=== PATIENT | male | born 1940 | race Caucasian/White ===

== ENCOUNTER 2021-02-21 09:00 | Outpatient (RCR) | payer MEDICARE, BC, SELFPAY | END 2021-02-21 23:59 | disposition home or self-care (01) | LOC: CR 09:00 | PROVIDERS: PCP Family Medicine; Visit Provider Family Medicine | DX: I25.2 Old myocardial infarction (principal); Z51.89 Encounter for other specified aftercare; Z95.5 Presence of coronary angioplasty implant and graft; I49.3 Ventricular premature depolarization | CPT/HCPCS: S9472 ==

== ENCOUNTER 2021-03-21 09:00 | Outpatient (RCR) | payer MEDICARE, BC, SELFPAY | END 2021-03-24 23:59 | disposition home or self-care (01) | LOC: CR 09:00 | PROVIDERS: PCP Family Medicine; Visit Provider Family Medicine | DX: Z51.89 Encounter for other specified aftercare (principal); I25.2 Old myocardial infarction | CPT/HCPCS: S9472 ==

== ENCOUNTER 2021-04-23 09:00 | Outpatient (RCR) | payer MEDICARE, BC, SELFPAY | END 2021-04-23 23:59 | disposition home or self-care (01) | LOC: CR 09:00 | PROVIDERS: PCP Family Medicine; Visit Provider Family Medicine | DX: Z51.89 Encounter for other specified aftercare (principal); I25.2 Old myocardial infarction; Z95.5 Presence of coronary angioplasty implant and graft | CPT/HCPCS: S9472 ==

== ENCOUNTER 2021-05-05 09:00 | Outpatient (RCR) | payer MEDICARE, BC, SELFPAY | END 2021-05-24 23:59 | disposition home or self-care (01) | LOC: CR 09:00 | PROVIDERS: PCP Family Medicine; Visit Provider Family Medicine | DX: Z51.89 Encounter for other specified aftercare (principal); I25.2 Old myocardial infarction; Z95.5 Presence of coronary angioplasty implant and graft | CPT/HCPCS: S9472 ==

== ENCOUNTER 2023-10-22 11:05 | Outpatient (RCR) | payer SELFPAY ==
[2023-10-13 15:24] VITALS: BP 146/62; PULSE 94
[2023-10-22 12:35] VITALS: BP 120/66; PULSE 77
== END 2023-10-24 23:59 | disposition home or self-care (01) ==
LOC: CR 11:05
PROVIDERS: PCP Family Medicine; Visit Provider Family Medicine
DX: R69 Illness, unspecified (principal)

== ENCOUNTER 2023-10-27 11:31 | Outpatient (RCR) | payer SELFPAY ==
[2023-10-25 00:12] VITALS: BP 120/66; PULSE 77
[2023-10-27 11:53] VITALS: BP 117/62; PULSE 94
== END 2023-11-24 23:59 | disposition home or self-care (01) ==
LOC: CR 11:31
PROVIDERS: PCP Family Medicine; Visit Provider Internal Medicine Interventional Cardiology
DX: R69 Illness, unspecified (principal)

== ENCOUNTER 2024-03-13 21:51 | Observation (INO) | payer MEDICARE, BC, SELFPAY ==
[2024-03-13] VITALS (12 sets, daily range): BP systolic 91–144; BP diastolic 27–90; PULSE 60–85; RESP 16; TEMP 36.7; O2SAT 99
--- NOTE | 2024-03-13 21:45 | RT.EKG_ITS ---
APPROVED REPORT Exam: Resting ECG Reason for Exam: SOB Patient Location: E HR:62 bpm ECG Measurements Heart Rate 62 AXIS NJ 125 P 176 QRSd 159 QRS 130 QT 462 T [id number] QTc 471 Conclusion paced rhythm
--- NOTE | 2024-03-13 22:15 | DI.CT_ITS ---
Exam(s) CT BRAIN NECK CTA EXAM: CT BRAIN NECK CTA CLINICAL HISTORY: transient difficult speech L eye blurry vision. TECHNIQUE: Imaging Protocol: Axial CT angiography was performed with multi-slice acquisition and mu lti-planar and MIP reconstructions. CONTRAST MATERIAL: Intravenous: Omnipaque 350 Contrast volume:100 ml COMPARISON: No exams were available for comparison FINDINGS: CT Head W/O and W contrast: Ventricles and Extra axial spaces: Normal in size and morphology for the patient's age. Hemorrhage: None. Cerebral parenchyma: No evidence of acute infarct or mass. Mild atrophy. Moderate white matter augustin es of small vessel disease. Midline shift: None. Brainstem/Cerebellum: No acute findings.. Calvarium: Normal. Visualized Paranasal sinuses/Mastoids: Clear. Soft Tissues: Unremarkable. Enhancement: Normal. CTA Brain W: Internal Carotid Arteries: Petrous: Normal. Cavernous: Normal. Cerebral: Normal. Middle Cerebral Arteries: Right: No aneurysm, occlusion or significant stenosis. Left: No aneurysm, occlusion or significant stenosis. Anterior Cerebral Arteries: Right: Hypoplastic A1 segment, normal variant. No aneurysm. Left: No aneurysm, occlusion or significant stenosis. Posterior cerebral Arteries: Right: No aneurysm, occlusion or significant stenosis. Left: No aneurysm, occlusion or significant stenosis. Vertebral Arteries: Right: No aneurysm, occlusion or significant stenosis. Left: No aneurysm, occlusion or significant stenosis. Basilar Artery: No aneurysm, occlusion or significant stenosis. CTA Neck W: Common Carotid: Right: No dissection, occlusion or significant stenosis. Left: No dissection, occlusion or significant stenosis. External Carotid: Right: Moderate stenosis at origin. Left: No dissection, occlusion or significant stenosis. Internal Carotid: Right: Calcified plaque at origin causing moderate stenosis. No dissection. Left: Calcified plaque at origin causing moderate stenosis. No dissection. Vertebral Artery: Right: Calcific plaque at origin causing moderate stenosis. No dissection or occlusion. Left: No dissection, occlusion or significant stenosis. Lung Apices: Emphysematous and fibrotic changes. Bones: Degenerative changes in the cervical spine. No acute abnormality. Soft Tissues: Normal. IMPRESSION: 1. CTA brain: Normal CTA examination of the [place]. 2. Head CT: No acute abnormality. 3. CTA neck: Calcific plaque at the common carotid bulbs causing moderate stenosis of the internal ca rotid arteries. Moderate stenosis at the origin of the right vertebral artery. RADIATION DOSE DELIVERED: 2,187.9mGy.cm Total DLP DATA REPOSITORY: All CT scans at this facility are submitted to the National Radiology Data Registry (NRDR) Dose Index Registry (DIR) with the [employer] (ACR). RADIATION OPTIMIZATION: All CT scans at this facility use at least one of these dose optimization te chniques: automated exposure control; mA and/or kV adjustment per patient size (includes targeted exa ms where dose is matched to clinical indication); or iterative reconstruction.
--- NOTE | 2024-03-13 22:35 | ED.GENADUL_ITS ---
Discharge Plan Disposition Patient Disposition: Admit to [facility] Condition: Serious Discharge Details Chief Complaint: GenMedical Clinical Impression: Non-ST elevation CO (NSTEMI), Orthostatic hypotension, PATRICIA (acute kidney injury) Admit Date/Time: 03/14/24 03:17 Admit Provider: Neel Ochoa Attending Provider: Neel Ochoa Primary Care Provider: Ximena Packer ED Provider: Phyllis Matthews General Mode of arrival: ambulatory . Date/Time Provider Initiated Documentation: 03/13/24 21:59 . Limitations to Documentation: no limitations . Information obtained by: patient, family and old records reviewed . HPI Narrative: 83yo M with hx of interstitial lung disease, CAD s/p CO with stent placement and subsequently permanent pacemaker placement, presenting for episode of difficultly speaking, blurred vision, and hypotension. Has noted worsening dyspnea on exertion over the past week, mostly when walking the dog. Today around 7pm had difficulty speaking- knew what he wanted to say but was 'unable to get the words out'. No slurred speech. Not confused or disoriented. At the same time he noted blurry/grainy vision in his left eye; has occular migraines and had similar but not identical symptoms in the past, more typically 'bright' colors. Checked his blood pressure and it was 70's/40's; he reports he is usually mid-to-high 90's systolic with diastolic in the 40's. [place] a little lightheaded as well. This lasted for about 20 minutes before resolving ent irely. No chest pain, shortness of breath (aside from [place]), syncope, or falls at any point. Does have a mild left sided headache and lateral neck pain which has been intermittent for the past few weeks. Receives most of his care at [facility]; called triage nurse later in the evening and was instructed to present to the ED for evaluation. No fevers, chills, rash, numbness, tingling, weakness, vertigo, nasuea, vomiting, dysuria, hematuria, abdominal pain, dark stool, bloody stool, LE edema, or other concerns. Normal appetite and PO intake. Related Data Home Medications Medication Instructions Recorded Confirmed aspirin 81 mg capsule 81 mg PO DAILY 03/14/24 03/14/24 carvedilol 3.125 mg tablet (Coreg) 3.125 mg PO BID 03/14/24 03/14/24 ipratropium bromide 42 mcg (0.06 2 spray intranasal QID 03/14/24 03/14/24 %) nasal spray ketoconazole 2 % topical cream 1 applic topical DAILY PRN 03/14/24 03/14/24 lisinopril 5 mg tablet 5 mg PO DAILY 03/14/24 03/14/24 nitroglycerin 0.4 mg sublingual 0.4 mg sublingual Q5-15M PRN 03/14/24 03/14/24 tablet rosuvastatin 20 mg tablet (Crestor) 20 mg PO DAILY 03/14/24 03/14/24 spironolactone 25 mg tablet 25 mg PO DAILY 03/14/24 03/14/24 (Aldactone) Allergies Allergy/AdvReac Type Severity Reaction Status Date / Time No Known Allergies Allergy Verified 03/13/24 22:00 General Stated Complaint: GenMedical SHANNA: 3 Review of Systems Narrative: see HPI Exam Narrative Exam Narrative: General: Alert, well appearing, well nourished, in no acute distress. Appears younger than stated age. Head: Normocephalic, atraumatic. Mild left temporal tenderness to palaption. Neck: Trachea midline, ?Neck supple. Left trapezius and paraspinal muscle tenderness. No midline tenderness. No pain with flexion at neck. ENT: ?MMM.? No oropharygeal lesions or exudate. Cardiac: ?RRR, no murmurs appreciated Resp: No respiratory distress. CTAB. Abd: ?Soft, non-distended, nontender : ?No suprapubic tenderness. Extremities: ?No deformities.? No peripheral edema. Neuro: ? GCS 15.? PERRL.? EOMI.? Fluent speech, no dysarthria. Good muscle bulk. Motor- 5/5 strength symmetric bilateral upper and lower extremities including shoulder abductors/adductors, elbow flexors/extensors, wrist flexors/extensors, hipflexors/extensors, knee flexors/extensors, ankle dorsiflexors and planter flexors. Sensation- ?Intact to light touch and symmetric multiple dermatomes including upper and lower extremities Coordination- No dysmetria on finger to nose Gait/station: ?Normal stance.? No truncal ataxia. Steady gait with equal normal steps CRANIAL NERVES: II: Pupils equal and reactive, III, IV, : EOM intact, no gaze preference or deviation, no nystagmus. V: normal sensation in V1, V2, and V3 segments bilaterally VII: no asymmetry, no nasolabial fold flattening VIII: normal hearing to speech IX, X: normal palatal elevation, no uvular deviation XI: 5/5 head turn and 5/5 shoulder shrug bilaterally XII: midline tongue protrusion Course Vital Signs Vital signs: Vital Signs Temperature 36.7 C 03/13/24 21:55 Pulse 85 03/13/24 21:55 Respiratory Rate 16 03/13/24 21:55 Blood Pressure 91/43 L 03/13/24 21:55 Pulse Oximetry 99 03/13/24 21:55 Temperature 36.7 C 03/13/24 22:02 Temperature Source Temporal Artery Scan 03/13/24 22:02 Pulse 85 03/13/24 22:02 Respiratory Rate 16 03/13/24 22:11 Respiratory Effort Normal, Non-Labored 03/13/24 22:11 Respiratory Depth Normal 03/13/24 22:11 Respiratory Pattern Normal 03/13/24 22:11 Blood Pressure 91/43 L 03/13/24 22:02 Blood Pressure Position Sitting 03/13/24 22:02 Pulse Oximetry 99 03/13/24 22:02 Oxygen Delivery Method Room Air 03/13/24 22:02 Oxygen Flow Rate 0 03/13/24 21:55 Pain Level 0 03/13/24 22:02 Medical Decision Making 83yo M with hx of interstitial lung disease, CAD s/p CO with stent placement and subsequently permanent pacemaker placement, presenting for episode of difficultly speaking, blurred vision, and hypotension. This lasted for about 20 minutes before resolving entirely. Vital signs on arrival with BP 91/43 which patient reports is fairly typical for him (BP 102/43 at the time of my assessment), HR in 60's, afebrile. Normal neurologic exam. Very well appearing, clearly in excellent baseline health. VA 20/15 R, 20/20 L. EKG paced rhythm, no ST segment changes to suggest occlusive CO, no priors available for comparison. Given hx of CHF (though EF fairly good at 40-45%) will proceed cautiously with fluid resus, given 500cc IVFB. Broad differential including TIA, acute coronary syndromes, temporal giant cell arteritis, worsening heart failure, etc. Unlikely sepsis, would not treat empirically. Not concerning for meningitis or active stroke. Orthostatic vital signs ordered; SBP 144-124-101, however patient denies any symptoms with this. Labs reviewed as below. CBC with Hg of 11.9 (no reported history of bleeding, no indication for transfusion), CMP with Cr of 1.7 (able to review prior [facility] labs on patient's phone with his permission, he has a normal Cr at baseline), Mag normal, ESR & CRP normal (reassuring against TGCA), lactate normal. Initial trop 158, BNP not suggestive of acute CHF exacerbation. Given 325 of ASA. Dimer >1000; CT for PE ordered. CT head and neck independently reviewed, no bleed or mass on my view, agree with radiology read below. CT chest independently reviewed, no large saddle embolus on my view, agree with radiology read below. On reassessment patient continues to deny recurrent symptoms. Lungs remains clear, normal O2 sat on room air. Given 2nd 500cc IVFB. Discussed with [facility] cardiology Dr. Isaac, advised trending troponin, echocardiogram in the morning, no indication for acute intervention/heparin/transfer for cath. Repeat troponin flat/slightly downtrending. Discussed code status with patient; DNR/DNI. Discussed with [facility] hospitalist and accepted to medicine service for observation for further workup and management T2 NSTEMI, PATRICIA, orthostasis. Awaiting admission orders and transfer to the floor. Medical Records Medical records reviewed: Yes I reviewed the patient's medical records. Imaging Data Radiologic Study: Imaging: CT Scan Radiologist's impression: IMPRESSION: No hemodynamically significant stenosis IMPRESSION: Moderate stenosis in the carotid bulbs and right vertebral artery origin No large vessel occlusion Radiologic Study #2: Imaging: CT Scan Radiologist's impression: IMPRESSION: No pulmonary emboli detected Lab Data Lab results reviewed: Yes I reviewed the patient's lab results. Labs: Laboratory Tests Range/Units 03/13/24 03/13/24 03/14/24 22:45 23:53 02:30 WBC (4.4-10.8) 10^3/uL 8.18 RBC (4.36-5.78) 10^6/uL 3.92 L Hgb (13.5-17.5) g/dL 11.9 L Hct (40.0-50.0) % 36.8 L MCV (80-95) fL 94 MCH (27.0-33.0) pg 30.4 MCHC (32.0-36.0) % 32.3 RDW (11.8-14.1) % 13.1 Plt Count (130-400) 10^3/uL 197 MPV (8.0-11.0) fL 9.9 Immature Gran % % 0.4 Neutrophils % % 59.7 Lymphocytes % % 27.5 Monocytes % % 8.2 Eosinophils % % 3.7 Basophils % % 0.5 Nucleated RBC % (0.0-0.3) % 0.0 Absolute Neutrophils (1.2-6.7) 10^3/uL 4.89 Absolute Lymphocytes (1.2-3.4) 10^3/uL 2.25 Absolute Monocytes (0.1-0.8) 10^3/uL 0.67 Absolute Eosinophils (0.0-0.7) 10^3/uL 0.30 Absolute Basophils (0.0-0.2) 10^3/uL 0.04 ESR (0-20) mm/hr 8 D-Dimer (<500) ng/mlFEU 1119 H VBG Lactate (0.6-1.4) mmol/L 0.7 Sodium (136-145) mmol/L 140 138 Potassium (3.5-5.1) mmol/L 4.7 4.5 Chloride (98-107) mmol/L 107 106 Carbon Dioxide (21.0-32.0) mmol/L 26.2 26.8 Anion Gap (3-11) mmol/L 6.8 5.2 BUN (7-18) mg/dL 45 H 39 H Creatinine (0.70-1.30) mg/dL 1.7 H 1.3 Est GFR (CKD-EPI 2020) (mL/min/1.73m2) 39.26 54.17 Glucose (74-106) mg/dL 142 H 88 Calcium (8.5-10.1) mg/dL 8.3 L 7.9 L Magnesium (1.8-2.4) mg/dL 2.2 Total Bilirubin (0.2-1.0) mg/dL 0.3 AST (15-37) U/L 22 ALT (16-63) U/L 22 Alkaline Phosphatase (46-116) U/L 93 Troponin I (< or =60) ng/L 158 H* 150 H* C-Reactive Protein (<or=0.5) mg/dL < 0.50 NT-Pro-B Natriuret Pep (<300) pg/mL 327 H Total Protein (6.4-8.2) g/dL 6.7 Albumin (3.4-5.0) g/dL 3.4 Urine Color (Yellow) Yellow Urine Clarity (Clear) Clear Urine pH (5-8) 6.0 Ur Specific [place] (1.005-1.025) 1.010 Urine Protein (Neg-Trace) mg/dL Negative Urine Ketones (Negative) mg/dL Negative Urine Blood (Negative) Negative Urine Nitrite (Negative) Negative Urine Bilirubin (Negative) Negative Urine Urobilinogen (Up to 0.2) mg/dL 0.2 Ur Leukocyte Esterase (Negative) Trace H Urine RBC (0-2) HPF 0-2 Urine WBC (0-5) HPF 3-5 Ur Epithelial Cells (Negative) HPF Rare Urine Crystals (Negative) HPF Negative Urine Bacteria (Negative) HPF Rare Urine Mucus (Negative) Negative Ur Culture Indicated? No Urine Glucose (Negative) mg/dL Negative Quality:SDOH Health Related Social Needs: No Data to Display PFSH All Active Problems (Updated 03/14/24 @ 04:43 by Phyllis Matthews MD) PATRICIA (acute kidney injury) (Acute) Orthostatic hypotension (Acute) Non-ST elevation CO (NSTEMI) (Acute) COPD (chronic obstructive pulmonary disease) (Chronic) PATRICIA (acute kidney injury) (Acute) Hyperlipidemia (Acute) Heart block (Acute) CHF (congestive heart failure) (Chronic) CAD (coronary artery disease), [place] coronary artery (Acute) Elevated troponin level not due to acute coronary syndrome (Acute) Orthostasis (Acute) Social History Smoking/Tobacco Use Status: Former Tobacco Use Quit Date: 02/26/81 Smoking risk assessment performed?: Yes Alcohol Intake: former Drug use: Never Substance use type: does not use Housing: house Do you feel safe at home: Yes Do you feel safe in your relationship?: Yes
[2024-03-13] MEDS: Omnipaque 350 MG/ML 100 ML BTL IJ (22:48)
[2024-03-13] MEDS: Normal Saline Flush 10 ML SYR IVP (22:48)
[2024-03-13] MEDS: Normal Saline - Diluent 50 ML VIAL IJ (22:49)
[2024-03-13] MEDS: Normal Saline 500 ML 1000 ML IV (22:50)
[2024-03-13 22:51] LABS: Abs Immature Grans 0.03 10^3/uL (0.0-0.06); Absolute Basophil Count 0.04 10^3/uL (0.0-0.2); Absolute Lymphocyte Count 2.25 10^3/uL (1.2-3.4); Absolute Monocyte Count 0.67 10^3/uL (0.1-0.8); Absolute Neutrophil Count 4.89 10^3/uL (1.2-6.7); Basophils % 0.5 %; Eosinophils % 3.7 %; HCT 36.8 % (40.0-50.0); HGB 11.9 g/dL (13.5-17.5); Immature Grans % 0.4 %; Lymphocytes % 27.5 %; MCH 30.4 pg (27.0-33.0); MCHC 32.3 % (32.0-36.0); MCV 94 fL (80-95); MPV 9.9 fL (8.0-11.0); Monocytes % 8.2 %; Neutrophils % 59.7 %; Platelet Count 197 10^3/uL (130-400); RBC 3.92 10^6/uL (4.36-5.78); RDW 13.1 % (11.8-14.1); WBC 8.18 10^3/uL (4.4-10.8)
[2024-03-13 22:52] LABS: ESR 8 mm/hr (0-20); Lactate 0.7 mmol/L (0.6-1.4)
[2024-03-13 23:09] LABS: C-Reactive Protein < 0.50 mg/dL (<or=0.5)
[2024-03-13 23:13] LABS: Troponin I 158 ng/L (< or =60)
--- NOTE | 2024-03-13 23:15 | DI.CT_ITS ---
Exam(s) CT CHEST PE CTA EXAM: CT CHEST PE CTA CLINICAL HISTORY: shortness of breath, elevated dimer. TECHNIQUE: Imaging Protocol: Axial CT angiography was performed with multi-slice acquisition and mu lti-planar reconstructions as well as axial, coronal and sagittal MIP reconstructions. CONTRAST MATERIAL: Intravenous: Omnipaque 350 Contrast volume:65 ml COMPARISON: CT CT BRAIN NECK CTA from 03/13/2024 FINDINGS: Pulmonary Arteries: No evidence of filling defect to suggest pulmonary emboli. Tracheobronchial tree: No mucous plugging. Mediastinum and [place]: No dominant adenopathy or fluid collection. Pulmonary parenchyma: Emphysematous and fibrotic changes, greater at the upper lobes. No consolidati on or dominant measurable mass. Pleura: No effusion or pneumothorax. Heart: The heart is mildly dilated. coronary artery calcifications are seen. Aorta: Thoracic aorta non-dilated. No dissection. Upper abdomen: No acute findings. Bones: Flowing osteophytes. No compression fractures. Tubes, Catheters, and Lines: Pacemaker over left pectoral muscle. Soft tissues: Bilateral gynecomastia. IMPRESSION: No evidence of pulmonary embolism. Emphysematous and fibrotic changes. RADIATION DOSE DELIVERED: 371.82mGy.cm Total DLP DATA REPOSITORY: All CT scans at this facility are submitted to the National Radiology Data Registry (NRDR) Dose Index Registry (DIR) with the [employer] (ACR). RADIATION OPTIMIZATION: All CT scans at this facility use at least one of these dose optimization te chniques: automated exposure control; mA and/or kV adjustment per patient size (includes targeted exa ms where dose is matched to clinical indication); or iterative reconstruction.
[2024-03-13 23:17] LABS: ALT 22 U/L (16-63); AST 22 U/L (15-37); Albumin 3.4 g/dL (3.4-5.0); Alkaline Phosphatase 93 U/L (46-116); Anion Gap 6.8 mmol/L (3-11); BUN 45 mg/dL (7-18); Bilirubin, Total 0.3 mg/dL (0.2-1.0); CO2 26.2 mmol/L (21.0-32.0); CREATININE 1.7 mg/dL (0.70-1.30); Calcium 8.3 mg/dL (8.5-10.1); Chloride 107 mmol/L (98-107); Estimated GFR 39.26 (mL/min/1.73m2); Glucose 142 mg/dL (74-106); Magnesium 2.2 mg/dL (1.8-2.4); NT-proBNP 327 pg/mL (<300); Potassium 4.7 mmol/L (3.5-5.1); Sodium 140 mmol/L (136-145); Total Protein 6.7 g/dL (6.4-8.2)
[2024-03-13 23:23] LABS: D-Dimer 1119 ng/mlFEU (<500)
--- NOTE | 2024-03-13 23:57 | DI.VRAD_ITS ---
PROCEDURE INFORMATION: Exam: CTA Head With Contrast, Arteriography Exam date and time: 03/13/2024 11:04 PM Age: 83 years old Clinical indication: Speech disturbance and visual disturbance; Other visual defect; Prior surgery; Surgery date: 6+ months; Surgery type: Pacemaker; Patient HX: Transient difficult speech \T\ L eye blurry vision TECHNIQUE: Imaging protocol: Computed tomographic angiography of the head with contrast. Exam focused on the arteries. 3D rendering (Not supervised by radiologist): MIP and/or 3D reconstructed images were created by the technologist. Radiation optimization: All CT scans at this facility use at least one of these dose optimization techniques: automated exposure control; mA and/or kV adjustment per patient size (includes targeted exams where dose is matched to clinical indication); or iterative reconstruction. Contrast material: OMNIPAQUE 350; Contrast volume: 100 ml; Contrast route: INTRAVENOUS (IV); COMPARISON: No relevant prior studies available. FINDINGS: ANTERIOR CIRCULATION: Right internal carotid artery: Intracranial segment is patent with no significant stenosis. No aneurysm. Right middle cerebral artery: No occlusion or significant stenosis. No aneurysm. Right anterior cerebral artery: Hypoplasia of the A1 segment, a normal variation No occlusion or significant stenosis. No aneurysm. Left internal carotid artery: Intracranial segment is patent with no significant stenosis. No aneurysm. Left middle cerebral artery: No occlusion or significant stenosis. No aneurysm. Left anterior cerebral artery: No occlusion or significant stenosis. No aneurysm. POSTERIOR CIRCULATION: Right vertebral artery: No occlusion or significant stenosis. No aneurysm. Left vertebral artery: No occlusion or significant stenosis. No aneurysm. Basilar artery: No occlusion or significant stenosis. No aneurysm. Right posterior cerebral artery: No occlusion or significant stenosis. No aneurysm. Left posterior cerebral artery: No occlusion or significant stenosis. No aneurysm. Brain: No definite mass, mass effect, or midline shift. Moderate white matter disease Cerebral ventricles: No ventriculomegaly. Bones/joints: Unremarkable. No acute fracture. Soft tissues: Unremarkable. IMPRESSION: No hemodynamically significant stenosis PROCEDURE INFORMATION: Exam: CTA Neck With Contrast Exam date and time: 03/13/2024 11:04 PM Age: 83 years old Clinical indication: Speech disturbance and visual disturbance; Other visual defect; Prior surgery; Surgery date: 6+ months; Surgery type: Pacemaker; Patient HX: Transient difficult speech \T\ L eye blurry vision TECHNIQUE: Imaging protocol: Computed tomographic angiography of the neck with contrast. Exam focused on the cervical segments of the vasculature. 3D rendering (Not supervised by radiologist): MIP and/or 3D reconstructed images were created by the technologist. Radiation optimization: All CT scans at this facility use at least one of these dose optimization techniques: automated exposure control; mA and/or kV adjustment per patient size (includes targeted exams where dose is matched to clinical indication); or iterative reconstruction. Contrast material: OMNIPAQUE 350; Contrast volume: 100 ml; Contrast route: INTRAVENOUS (IV); COMPARISON: No relevant prior studies available. FINDINGS: Right common carotid artery: No stenosis. No dissection or occlusion. Right internal carotid artery: Calcified plaque with moderate stenosis at bulb. No dissection or occlusion. Right external carotid artery: No occlusion. Moderate stenosis of the origin. Left common carotid artery: No stenosis. No dissection or occlusion. Left internal carotid artery: Calcified plaque with moderate stenosis at the bulb. No dissection or occlusion. Left external carotid artery: No occlusion or stenosis of the origin. Right vertebral artery: Calcified plaque with moderate stenosis of the origin. No dissection or occlusion. Left vertebral artery: No stenosis. No dissection or occlusion. Soft tissues: No significant soft tissue swelling. Bones/joints: No acute fracture. IMPRESSION: Moderate stenosis in the carotid bulbs and right vertebral artery origin No large vessel occlusion REFERENCES: NASCET CRITERIA. The degree of stenosis in the cervical segment of the internal carotid artery is based on NASCET criteria. Normal is no stenosis. Mild is less than 50% stenosis. Moderate is 50-69% stenosis. Severe is 70% to 99% stenosis. Total occlusion is no detectable patent lumen. Dictated and Authenticated by: Romaine Dobson MD. Ordering:DYLON Ferguson MD
[2024-03-13 23:58] LABS: Bilirubin Negative (Negative); Blood Negative (Negative); Clarity Clear (Clear); Glucose Negative (Negative); Ketones Negative (Negative); Leukocyte Esterase Trace (Negative); Nitrite Negative (Negative); Urobilinogen 0.2 mg/dL (Up to 0.2)
[2024-03-14] VITALS (33 sets, daily range): BP systolic 80–175; BP diastolic 34–87; PULSE 59–142; RESP 11–30; TEMP 36.1–36.7; O2SAT 98–100
[2024-03-14 00:07] LABS: Bacteria Rare HPF (Negative); C & S Indicated? No; Crystals Negative HPF (Negative); Epithelial Cells Rare HPF (Negative); Mucus Negative (Negative); RBC 0-2 HPF (0-2)
[2024-03-14] MEDS: Omnipaque 350 MG/ML 100 ML BTL IJ (00:18)
[2024-03-14] MEDS: Normal Saline - Diluent 50 ML VIAL IJ (00:19)
--- NOTE | 2024-03-14 00:39 | DI.VRAD_ITS ---
PROCEDURE INFORMATION: Exam: CTA Chest With Contrast Exam date and time: 03/13/2024 11:47 PM Age: 83 years old Clinical indication: Abnormal findings; Abnormal diagnostic tests; Elevated d-dimer; Prior surgery; Surgery date: 6+ months; Surgery type: Pacemaker/stent; Patient HX: Shortness of breath, elevated dimer TECHNIQUE: Imaging protocol: Computed tomographic angiography of the chest with contrast. Exam focused on the arteries. 3D rendering (Not supervised by radiologist): MIP and/or 3D reconstructed images were created by the technologist. Radiation optimization: All CT scans at this facility use at least one of these dose optimization techniques: automated exposure control; mA and/or kV adjustment per patient size (includes targeted exams where dose is matched to clinical indication); or iterative reconstruction. Contrast material: OMNIPAQUE 350; Contrast volume: 65 ml; Contrast route: INTRAVENOUS (IV); COMPARISON: CT BRAIN NECK CTA 03/13/2024 11:04 PM FINDINGS: Pulmonary arteries: No pulmonary emboli. Aorta: No aortic aneurysm. No aortic dissection. Lungs: No consolidation. No masses. Emphysema and minimal subsegmental atelectasis versus scarring Pleural spaces: Unremarkable. No pneumothorax. No pleural effusion. Heart: Cardiac pacemaker leads noted Mild cardiomegaly. Coronary calcifications No pericardial effusion. Lymph nodes: Unremarkable. No enlarged lymph nodes. Bones/joints: Unremarkable. No acute fracture. Soft tissues: Unremarkable. Hepatic cyst in the right lobe IMPRESSION: No pulmonary emboli detected Dictated and Authenticated by: Romaine Dobson MD. Ordering:DYLON Ferguson MD
[2024-03-14] MEDS: Normal Saline 500 ML 1000 ML IV (01:00)
[2024-03-14 02:47] LABS: Anion Gap 5.2 mmol/L (3-11); BUN 39 mg/dL (7-18); CO2 26.8 mmol/L (21.0-32.0); CREATININE 1.3 mg/dL (0.70-1.30); Calcium 7.9 mg/dL (8.5-10.1); Chloride 106 mmol/L (98-107); Estimated GFR 54.17 (mL/min/1.73m2); Glucose 88 mg/dL (74-106); Potassium 4.5 mmol/L (3.5-5.1); Sodium 138 mmol/L (136-145)
[2024-03-14 03:02] LABS: Troponin I 150 ng/L (< or =60)
--- NOTE | 2024-03-14 03:06 | W.PM.HP.N ---
Date of service: 03/14/24 Time of Service: 03:06 Assessment and Plan Assessment and plan (1) Orthostasis: Start date: 03/14/24 Status: Acute Assessment and plan: This is an 83-year-old gentleman with orthostatic symptoms and low blood pressure. He is a cardiac pacemaker his heart rate was not dropping below 60 with pacing evident on rapid transit operator. He was driving on the day of presentation and did feel better after fluid resuscitation. He had decreased intake the day of presentation. He will maintain hydration orally and hold lisinopril for now with Coreg and spironolactone will be continued with a history of CHF. Follow-up echocardiogram to update and trend troponins. He is not having any ischemic changes with less than branch block and pacing and is chest pain-free. Troponins were slightly elevated this appears to be not from ischemic event. He is a DNR/DNI. (2) PATRICIA (acute kidney injury): Start date: 03/14/24 Status: Acute Assessment and plan: Fluid hydration has already done with no further hydration and patient to take an oral fluids and food. This has been decreased over the last couple days. He is on spironolactone. He appears to be at his baseline. (3) Elevated troponin level not due to acute coronary syndrome: Start date: 03/14/24 Status: Acute Assessment and plan: Trending appears to be decreasing with continued trending follow-up cardiac monitoring as well as echocardiogram. (4) CAD (coronary artery disease), [place] coronary artery: Status: Chronic Assessment and plan: Previous history of events with pacemaker. Continue cardiac monitoring and troponin trending which appears to be decreasing. Patient will be follow-up with [facility] [place]. Qualifiers: Associated angina: without angina Teller vs. transplanted heart: [place] heart Qualified Code(s): I25.10 - Atherosclerotic heart disease of [place] coronary artery without angina pectoris (5) CHF (congestive heart failure): Status: Chronic Assessment and plan: Update echocardiogram and continue outpatient medical therapy except for lisinopril for now. Patient will follow-up with [facility] cardiology and they will be reconsulted if patient becomes unstable. He is a DNR/DNI. Qualifiers: Heart failure chronicity: chronic Heart failure type: systolic Qualified Code(s): I50.22 - Chronic systolic (congestive) heart failure (6) Heart block: Status: Chronic Assessment and plan: With permanent pacemaker functioning well. There is good capture. Patient is not restricted in his activity. (7) Hyperlipidemia: Status: Chronic Assessment and plan: Continue statin therapy. Qualifiers: Hyperlipidemia type: mixed hyperlipidemia Qualified Code(s): E78.2 - Mixed hyperlipidemia (8) COPD (chronic obstructive pulmonary disease): Status: Chronic Assessment and plan: Continue outpatient inhaler. Qualifiers: COPD type: emphysema Emphysema type: other Qualified Code(s): J43.8 - Other emphysema (9) Carotid stenosis, bilateral: Status: Chronic Assessment and plan: Moderate and possibly symptomatic the patient is having dizziness but this appears to be more associated with orthostasis. Follow-up as outpatient on this issue with his PCP and cardiology and possibly cardiovascular surgery at [facility]. He is on aspirin. There is no evidence of stroke. With no focal neurological symptoms MRI of the brain will be deferred History of Present Illness History of Present Illness Chief Complaint: Episode of difficulty speaking with blurred vision and low blood pressure Narrative: This is an 83-year-old male patient reported to the ED because of an episode of dizziness with blurred vision and difficulty speaking even though he was thinking clearly knowing what he wanted to say. He measured his blood pressure at home because of his symptoms and had a systolic blood pressure below 80. He has been having worsening dyspnea with exertion walking his dog recently having a known decrease left-ventricular ejection fraction to 40 to 45% status post CAD with MD and subsequent pacemaker. He also has interstitial lung disease. He has been remaining very active physically after these events. The present episode happened in the early evening the day prior to admission where he had difficulty speaking when he knew what he wanted to say but was unable to get his words out. He had no slurred speech. He did not feel confused. 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 With his dizziness he felt lightheaded during the episode. 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 In the ED he was found to have orthostatic blood pressure measurements though he was not symptomatic during these measurements and his EKG showed no acute ischemic changes though he had slightly elevated troponins which were plateauing just above 300. Imaging did not reveal a PE or any positive findings for stroke. He did have mild PATRICIA which corrected with IV fluids. He did that he was not eating or drinking well the day prior to admission. He did call cardiology at [facility] and gave his vital signs and symptoms to advise him to be evaluated in the ER. The ED provider did review the case with [facility] cardiology who advised observation with trending troponins and cardiac monitoring with updated echocardiogram follow-up in the morning. His last echocardiogram was in 2022. The patient was asymptomatic at the time I saw him and agreed with the care plan. He is a DNR/DNI. Review of Systems Narrative: 13 point review of systems negative for any peripheral edema or increased weight, otherwise as per HPI, unrevealing or stable. PFSH All Active Problems (Updated 03/14/24 @ 10:55 by Neel Ochoa) Carotid stenosis, bilateral (Chronic) PATRICIA (acute kidney injury) (Acute) Orthostatic hypotension (Acute) Non-ST elevation MD (NSTEMI) (Acute) COPD (chronic obstructive pulmonary disease) (Chronic) PATRICIA (acute kidney injury) (Acute) Hyperlipidemia (Chronic) Heart block (Chronic) CHF (congestive heart failure) (Chronic) CAD (coronary artery disease), [place] coronary artery (Chronic) Elevated troponin level not due to acute coronary syndrome (Acute) Orthostasis (Acute) Social History Smoking/Tobacco Use Status: Former Tobacco Use Quit Date: 02/26/81 Smoking risk assessment performed?: Yes Alcohol Intake: former Drug use: Never Substance use type: does not use Housing: house Do you feel safe at home: Yes Do you feel safe in your relationship?: Yes Meds Allergies and Home Medications Allergies Allergy/AdvReac Type Severity Reaction Status Date / Time No Known Allergies Allergy Verified 03/13/24 22:00 Home Medications Medication Instructions Recorded Confirmed Type aspirin 81 mg capsule 81 mg PO DAILY 03/14/24 03/14/24 History carvedilol 3.125 mg tablet (Coreg) 3.125 mg PO BID 03/14/24 03/14/24 History ipratropium bromide 42 mcg (0.06 2 spray intranasal QID 03/14/24 03/14/24 History %) nasal spray ketoconazole 2 % topical cream 1 applic topical DAILY PRN 03/14/24 03/14/24 History lisinopril 5 mg tablet 5 mg PO DAILY 03/14/24 03/14/24 History nitroglycerin 0.4 mg sublingual 0.4 mg sublingual Q5-15M PRN 03/14/24 03/14/24 History tablet rosuvastatin 20 mg tablet (Crestor) 20 mg PO DAILY 03/14/24 03/14/24 History spironolactone 25 mg tablet 25 mg PO DAILY 03/14/24 03/14/24 History (Aldactone) Exam Narrative Exam Narrative: General: Patient appears appropriate for age is not younger, alert and oriented x 3 and in no acute distress. HEENT: Normocephalic, eyes with pupils equal and react to light symmetrically, extraocular movement tachycardia sclera anicteric. Oral mucosa slightly dry with good dentition. Neck: Supple without JVD. Back: Normal posture without CVA tenderness. Lungs: Fair aeration and clear to auscultation percussion. No focalizing rales or rhonchi. Heart: Regular rate and rhythm with no murmur or gallop appreciated. field technician shows paced rhythm. Abdomen: Normal contour, soft to palpation with no guarding or rebound. No palpable hepatosplenomegaly. Bowel sounds positive all quadrants. Genitalia/rectal: Exam deferred. Extremities: No clubbing, cyanosis or pitting edema. Peripheral pulses intact with good capillary refill. Skin: Normal color, warm and dry. Neuro: Cranial nerves II through XII gross intact, no focalizing motor deficits. No tremor. Psych: Normal affect and mood. No abnormal thought processes. Remote and recent memory intact. Results Imaging Imaging Studies: EXAM: CT CHEST PE CTA CLINICAL HISTORY: shortness of breath, elevated dimer. TECHNIQUE: Imaging Protocol: Axial CT angiography was performed with multi-slice acquisition and multi-planar reconstructions as well as axial, coronal and sagittal MIP reconstructions. CONTRAST MATERIAL: Intravenous: Omnipaque 350 Contrast volume:65 ml COMPARISON: CT CT BRAIN NECK CTA from 03/13/2024 FINDINGS: Pulmonary Arteries: No evidence of filling defect to suggest pulmonary emboli. Tracheobronchial tree: No mucous plugging. Mediastinum and [place]: No dominant adenopathy or fluid collection. Pulmonary parenchyma: Emphysematous and fibrotic changes, greater at the upper lobes. No consolidation or dominant measurable mass. Pleura: No effusion or pneumothorax. Heart: The heart is mildly dilated. coronary artery calcifications are seen. Aorta: Thoracic aorta non-dilated. No dissection. Upper abdomen: No acute findings. Bones: Flowing osteophytes. No compression fractures. Tubes, Catheters, and Lines: Pacemaker over left pectoral muscle. Soft tissues: Bilateral gynecomastia. IMPRESSION: No evidence of pulmonary embolism. Emphysematous and fibrotic changes. EXAM: CT BRAIN NECK CTA CLINICAL HISTORY: transient difficult speech L eye blurry vision. TECHNIQUE: Imaging Protocol: Axial CT angiography was performed with multi-slice acquisition and multi-planar and MIP reconstructions. CONTRAST MATERIAL: Intravenous: Omnipaque 350 Contrast volume:100 ml COMPARISON: No exams were available for comparison FINDINGS: CT Head W/O and W contrast: Ventricles and Extra axial spaces: Normal in size and morphology for the patient's age. Hemorrhage: None. Cerebral parenchyma: No evidence of acute infarct or mass. Mild atrophy. Moderate white matter changes of small vessel disease. Midline shift: None. Brainstem/Cerebellum: No acute findings.. Calvarium: Normal. Visualized Paranasal sinuses/Mastoids: Clear. Soft Tissues: Unremarkable. Enhancement: Normal. CTA Brain W: Internal Carotid Arteries: Petrous: Normal. Cavernous: Normal. Cerebral: Normal. Middle Cerebral Arteries: Right: No aneurysm, occlusion or significant stenosis. Left: No aneurysm, occlusion or significant stenosis. Anterior Cerebral Arteries: Right: Hypoplastic A1 segment, normal variant. No aneurysm. Left: No aneurysm, occlusion or significant stenosis. Posterior cerebral Arteries: Right: No aneurysm, occlusion or significant stenosis. Left: No aneurysm, occlusion or significant stenosis. Vertebral Arteries: Right: No aneurysm, occlusion or significant stenosis. Left: No aneurysm, occlusion or significant stenosis. Basilar Artery: No aneurysm, occlusion or significant stenosis. CTA Neck W: Common Carotid: Right: No dissection, occlusion or significant stenosis. Left: No dissection, occlusion or significant stenosis. External Carotid: Right: Moderate stenosis at origin. Left: No dissection, occlusion or significant stenosis. Internal Carotid: Right: Calcified plaque at origin causing moderate stenosis. No dissection. Left: Calcified plaque at origin causing moderate stenosis. No dissection. Vertebral Artery: Right: Calcific plaque at origin causing moderate stenosis. No dissection or occlusion. Left: No dissection, occlusion or significant stenosis. Lung Apices: Emphysematous and fibrotic changes. Bones: Degenerative changes in the cervical spine. No acute abnormality. Soft Tissues: Normal. IMPRESSION: 1. CTA brain: Normal CTA examination of the [place]. 2. Head CT: No acute abnormality. 3. CTA neck: Calcific plaque at the common carotid bulbs causing moderate stenosis of the internal carotid arteries. Moderate stenosis at the origin of the right vertebral artery. Labs 03/14/24 06:07 03/14/24 06:07 Labs: Laboratory Results - last 24 hr 03/13/24 03/13/24 03/14/24 22:45 23:53 02:30 WBC 8.18 RBC 3.92 L Hgb 11.9 L Hct 36.8 L MCV 94 MCH 30.4 MCHC 32.3 RDW 13.1 Plt Count 197 MPV 9.9 Immature Gran % 0.4 Neutrophils % 59.7 Lymphocytes % 27.5 Monocytes % 8.2 Eosinophils % 3.7 Basophils % 0.5 Nucleated RBC % 0.0 Absolute Neutrophils 4.89 Absolute Lymphocytes 2.25 Absolute Monocytes 0.67 Absolute Eosinophils 0.30 Absolute Basophils 0.04 ESR 8 D-Dimer 1119 H VBG Lactate 0.7 Sodium 140 138 Potassium 4.7 4.5 Chloride 107 106 Carbon Dioxide 26.2 26.8 Anion Gap 6.8 5.2 BUN 45 H 39 H Creatinine 1.7 H 1.3 Est GFR (CKD-EPI 2020) 39.26 54.17 Glucose 142 H 88 Calcium 8.3 L 7.9 L Magnesium 2.2 Total Bilirubin 0.3 AST 22 ALT 22 Alkaline Phosphatase 93 Troponin I 158 H* 150 H* C-Reactive Protein < 0.50 NT-Pro-B Natriuret Pep 327 H Total Protein 6.7 Albumin 3.4 Urine Color Yellow Urine Clarity Clear Urine pH 6.0 Ur Specific [place] 1.010 Urine Protein Negative Urine Ketones Negative Urine Blood Negative Urine Nitrite Negative Urine Bilirubin Negative Urine Urobilinogen 0.2 Ur Leukocyte Esterase Trace H Urine RBC 0-2 Urine WBC 3-5 Ur Epithelial Cells Rare Urine Crystals Negative Urine Bacteria Rare Urine Mucus Negative Ur Culture Indicated? No Urine Glucose Negative Last Vital Signs Temp 36.7 C 03/13/24 22:02 Pulse 68 03/13/24 23:41 Resp 16 03/13/24 22:11 BP 144/47 H 03/13/24 23:41 Pulse Ox 99 03/13/24 22:02 Time Spent Time spent with Patient: >75 minutes Time was spent: preparing to see the patient(eg.review tests), obtaining and/or reviewing separately otained hiistory, ordering medications,tests, procedures, referring, communicating with other health doggy daycare activities director, indepentently interpreting results, counseling the patient and care coordination
[2024-03-14] MEDS: Aspirin 81 MG CHEW 324 MG CH (03:07)
[2024-03-14 06:30] LABS: HCT 37.3 % (40.0-50.0); HGB 12.3 g/dL (13.5-17.5); MCH 30.7 pg (27.0-33.0); MCV 93 fL (80-95); MPV 10.1 fL (8.0-11.0); Platelet Count 184 10^3/uL (130-400); RBC 4.01 10^6/uL (4.36-5.78); RDW 13.2 % (11.8-14.1); RDW-SD 45.3 fL; WBC 6.79 10^3/uL (4.4-10.8)
[2024-03-14 06:59] LABS: ALT 20 U/L (16-63); AST 22 U/L (15-37); Albumin 3.3 g/dL (3.4-5.0); Alkaline Phosphatase 91 U/L (46-116); BUN 37 mg/dL (7-18); Bilirubin, Total 0.3 mg/dL (0.2-1.0); CREATININE 1.2 mg/dL (0.70-1.30); Calcium 8.4 mg/dL (8.5-10.1); Chloride 109 mmol/L (98-107); Estimated GFR 59.63 (mL/min/1.73m2); Glucose 113 mg/dL (74-106); Magnesium 2.2 mg/dL (1.8-2.4); Potassium 4.1 mmol/L (3.5-5.1); Sodium 140 mmol/L (136-145); TSH (W/Ref FT4) 2.86 uIU/mL (0.36-3.74); Total Protein 6.6 g/dL (6.4-8.2)
[2024-03-14 07:03] LABS: Troponin I 146 ng/L (< or =60)
[2024-03-14] MEDS: Enoxaparin 40 MG/0.4 ML SYR SC ×2 (08:16→19:38)
[2024-03-14] MEDS: Aspirin 81 MG CHEW PO (08:17)
[2024-03-14] MEDS: Normal Saline Flush 10 ML SYR IVP ×3 (08:18→23:45)
[2024-03-14] MEDS: Spironolactone 25 MG TAB PO (08:18)
[2024-03-14 09:59] LABS: Troponin I 153 ng/L (< or =60)
--- NOTE | 2024-03-14 13:27 | DI.US_ITS ---
APPROVED REPORT EXAM: Comprehensive 2D, Doppler, and color-flow Echocardiogram Patient Location: Out-Patient Crm System Administrator: Caroline Lackey RDCS (AE) Indications: CHF with elevated troponins, PATRICIA, orthostasis, CAD Other Information Study Quality: Adequate Conclusion Normal left ventricular wall thickness and chamber size. Ejection fraction is 50 to 55%. There are no segmental wall motion abnormalities Normal right ventricular size and function Both atria are normal in size Device lead noted in the right heart Aortic valve is trileaflet and mildly sclerotic without stenosis or regurgitation Mild mitral annular calcification. Mild mitral regurgitation Estimated right ventricular systolic pressure is 25 mmHg Compared to an echocardiogram from November 2023 at [facility], LV function appears mildly improved Wall motion Left Ventricle The left ventricle is normal size. The overall left ventricular systolic function appears normal. The re is normal left ventricular wall thickness. There is normal LV segmental wall motion. There is no v entricular septal defect visualized. LVEF is 53%. Right Ventricle The right ventricle is normal size. The right ventricular systolic function is normal. Pacemaker adam d is present in the right ventricle. Atria The left atrium size is normal. The right atrium size is normal. The interatrial septum is intact wit h no evidence for an atrial septal defect. Aortic Valve The Aortic valve is mildly sclerotic. Aortic valve is trileaflet. There is no aortic valvular stenosi s. No aortic regurgitation is present. Mitral Valve Mild mitral annular calcification. No evidence of mitral valve stenosis. Mild mitral regurgitation. Tricuspid Valve The tricuspid valve is normal in structure. There is no tricuspid valve stenosis. Trace tricuspid reg urgitation. The RVSP is 25.0 mmHg. Pulmonic Valve The pulmonary valve is normal in structure. There is no pulmonic valvular stenosis. Trace pulmonic re gurgitation. Great Vessels The aortic root is normal in size. The ascending aorta is normal in size. Aortic arch is not well vis ualized. IVC is normal in size and collapses >50% with inspiration. Pericardium There is no pericardial effusion. 2D Dimensions IVSD d PLAX 1.11 cm M: 0.6-1.2 Ao Root d 3.25 cm M: 3.1 - 3.7 LVPW d PLAX 1.10 cm M: 0.6 - 1.2 Ao Asc Diam d 3.24 cm M: 2.6 - 3.4 LVID d PLAX 4.99 cm M: 4.2 - 5.8 LVDs 3.66 cm M: 2.5 - 4.0 LV EF Teichholz 51.8 % FS 26.60 % LV EDV (Teich) 117.5 mL LV ESV (Teich) 56.6 mL M-Mode TAPSE 2.13 cm (M/F) >1.7 Auto EF LV EDV A4C 92.8 mL LV EDV A2C 127.4 mL LV EDV BP 109.9 mL LV ESV A4C 46.3 mL LV ESV A2C 59.4 mL LV ESV BP 51.5 mL LVEF(%) A4C 50.1 % LVEF(%) A2C 53.4 % LVEF(%) BP 53.1 % LV SV A4C 46.5 ml LV SV A2C 68.0 ml LV SV BP 58.4 ml LV CO A4C 2.8 L/min LV CO A2C 4.1 L/min LV CO BP 3.4 L/min HR A4C 59.90 BPM HR A2C 59.90 BPM LV EDV Index (BP) LV Strain Long Pk Overal Avg (s) 11.68 LA Volume LA Length A4C 5.8 cm LA Length A2C 5.7 cm LA Area A4C s 17.76 cm2 LA Area A2C s 18.38 cm2 LA Vol A4C A-L 46.14 mL LA Vol A2C A-L 49.98 mL LA Vol Biplane A-L 48.3 mL LA Vol/BSA A4C A-L LA Vol/BSA A2C A-L LA Vol/BSA BP A-L 25.8 mL/m2 LA Vol A4C MOD 43.7 mL LA Vol A2C MOD 47.9 mL LA Vol BP MOD 45.7 mL RA Volume RA Area A4C 15.4 cm2 RA ESV A4C (A-L) 40.6mL RA Vol/BSA A4C A-L RA Length A4C 4.9 cm RA ESV A4C (MOD) 38.4mL LV Diastology MV E' medial 0.087 (>0.07 m/s) MV E Vmax 0.90 (0.4-1.3 m/s) MV E/E' MED 10.36 (<14) MV A Vmax 0.90 (0.4-1.3 m/s) MV E' lateral 0.077 (>0.1 m/s) E/A Ratio 1.0 MV E/E' LAT 11.68 (<14) MV E' Average 0.082 m/s MV E/E'(average) 10.98 Aortic Valve AoV Vmax 1.93 m/s LVOT Vmax 1.28 m/s AoV Peak Grad 14.9 mmHg LVOT Peak Grad 6.5 mmHg AoV Area (Vmax) 2.12 cm2 LVOT VTI 0.276 m AoV VTI 0.457 m LVOT Mean Grad 3.8 mmHg AoV Mean [place]. 1.31 m/s LVOT SV 88.74 mL AoV Mean Grad 7.9 mmHg LVOT Diam s 2.00 cm AoV Area (VTI) 1.94 cm2 Velocity Ratio 0.66 Mitral Valve MV DT 200 (160-240 msec) MV Vmax TIPS 0.81 m/s MV Mean Grad 1.4 (<2mmHg) MV VTI 0.274 m Pulmonary Valve PV Vmax 0.93 (0.5-1.5 m/s) RVOT Vmax 0.69 m/s PV Peak Grad 3.5 mmHg RVOT Peak Gr. 1.9 mmHg PV Mean [place] 0.67 m/s RVOT VTI 0.142 m PV Mean Grad 2.1 mmHg RVOT Mean Gr. 1.0 mmHg Tricuspid Valve RA Pressure 3.00 mmHg TR Vmax 2.34 m/s TV S' 0.14 m/s TR Peak Grad 21.9 mmHg RVSP (TR) 25.0 mmHg
--- NOTE | 2024-03-14 16:25 | PDOC.CMIN ---
Date of service: 03/14/24 Time of Service: 16:25 Care Management Initial Assmt Initial Assessment Reason for Hospitalization: orthostasis, PATRICIA, elevated troponins Functional Status/Living Situation Town of Residence: [place] Resides with: Spouse (Michelle) Significant Other/Family: Local Natural Supports: Farhad and his , Michelle have seven children, sixteen grandchildren, and one great grandchild on the way. 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 He also plays tennis regularly. He enjoys being active. He still travels for work on average 2-3 times a month. Medications Medication Management: No Issues/Barriers identified Physical Functioning/Mobility Assistive Device: None. Advance Directives Advance Directives: Do you have an Advance Directive: N 03/25/21 14:19 AD On File at [facility]: N 12/22/20 18:47 Date Asked 03/13/24 03/13/24 22:01 AD Date Reviewed COLST On File at [facility] COLST Date Scanned Code Status Resuscitation Status DNR/DNI Insurance Coverage/Financial Issues Insurance: [facility] /[facility] supplement. ACO Member: No Care Team Visit Care Team Role Provider Type Ximena Packer Primary Care Provider NON-[facility] STAFF PHYSICIAN Phyllis Matthews MD Emergency Provider [facility] STAFF PHYSICIAN Neel Ochoa Admit Provider NON-[facility] STAFF PHYSICIAN Attending Provider Discharge Potential Discharge Needs: Imaging/labs (Echo; completed today) and PCP F/U Appt Anticipated Barriers to Discharge: None Identified Patient/Family Education Needs: Review discharge instructions, discuss Ask Me Three Transportation: Private vehicle ( will transport) Plan: Anticipate Farhad will return home once medically cleared. His will drive him home via private vehicle. He will follow up with his PCP and discharge plan of care. CM will continue to follow. PFSH All Active Problems (Updated 03/14/24 @ 10:55 by Neel Ochoa) Carotid stenosis, bilateral (Chronic) PATRICIA (acute kidney injury) (Acute) Orthostatic hypotension (Acute) Non-ST elevation [place] (NSTEMI) (Acute) COPD (chronic obstructive pulmonary disease) (Chronic) PATRICIA (acute kidney injury) (Acute) Hyperlipidemia (Chronic) Heart block (Chronic) CHF (congestive heart failure) (Chronic) CAD (coronary artery disease), [place] coronary artery (Chronic) Elevated troponin level not due to acute coronary syndrome (Acute) Orthostasis (Acute) Social History Smoking/Tobacco Use Status: Former Tobacco Use Quit Date: 02/26/81 Smoking risk assessment performed?: Yes Alcohol Intake: former Drug use: Never Substance use type: does not use Housing: house Do you feel safe at home: Yes Do you feel safe in your relationship?: Yes SDOH(Care Management) Screening Will the Patient Participate in the Screening?: Unable to obtain Do you worry about having a steady place to live?: no Problems where you live: no known problems In the past 12 months, have you had to go without electric, gas, oil or water in your home?: no Have you or anyone in your house had to go without enough food to eat?: no Has lack of transportation kept you from medical appointments or from doing things needed for daily living?: no Has anyone in your support network made you feel unsafe for any reason?: no
[2024-03-14] MEDS: Carvedilol 3.125 MG TAB PO (16:48)
--- NOTE | 2024-03-14 17:23 | CHAPLAIN ---
Farhad was sitting up in the chair in his room when I visited. He was pleasant and easily engaged in conversation. Farhad follows Shinto practices and has for many years. In the past he began the new year with a 10 day solo retreat. 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 He has also attended [employer] meetings in the past, and his children attended a [employer] school when they were young. 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 Farhad continues to practice meditation. He talked a bit about his kids and grandkids. Farhad and his have had a home in the area for 30 years. He thought he might be discharged later today.
[2024-03-14] MEDS: Rosuvastatin 20 MG TAB PO (19:38)
[2024-03-15 03:00] VITALS: BP 100/58; PULSE 72; RESP 16; TEMP 36.4; O2SAT 95
[2024-03-15 06:49] LABS: Troponin I 150 ng/L (< or =60)
[2024-03-15 07:53] VITALS: BP 110/64; PULSE 60; RESP 20; TEMP 36.4; O2SAT 100
[2024-03-15] MEDS: Enoxaparin 40 MG/0.4 ML SYR SC (08:09)
[2024-03-15] MEDS: Carvedilol 3.125 MG TAB PO ×2 (08:09→17:38)
[2024-03-15] MEDS: Spironolactone 25 MG TAB PO (08:10)
[2024-03-15] MEDS: Aspirin 81 MG CHEW PO (08:11)
[2024-03-15] MEDS: Normal Saline Flush 10 ML SYR IVP (08:14)
[2024-03-15 10:30] VITALS: BP 101/59; BP 146/61; BP 147/74; PULSE 60; PULSE 62; PULSE 66
--- NOTE | 2024-03-15 10:58 | CMDISCH_ITS ---
Date of service: 03/15/24 Time of Service: 10:58 LACE Index Scoring Tool Questions: Length of Stay (in days): 2 Was the patient admitted via the E.D.?: Yes Comorbidities: Previous M.I., Congestive Heart Failure and Chronic Pulmonary Disease E.D. Visits: 0 Answers: Total Score: 10 Risk of Readmission: High Risk Care Management Discharge Plan Reason for Hospitalization: Orthostasis, elevated troponin Discharge Plan: Farhad will return home today with no new services. His will drive him home via private vehicle. He will follow up with his PCP and discharge plan of care. He is happy to be going home. Patient/Family Education Needs: Review discharge instructions and limitations, discussion of self care needs including ask me three. [facility] Health Related Social Needs: No Data to Display
[2024-03-15 11:59] VITALS: BP 110/70; PULSE 62; RESP 16; TEMP 36.6; O2SAT 100
--- NOTE | 2024-03-15 13:39 | PHA.REVIEW2 ---
Pharmacy Admission Review Admission Clinical Review Admission Pharmacy Review: PATRICIA (acute kidney injury) (Acute) Elevated troponin level not due to acute coronary syndrome (Acute) Orthostasis (Acute) No Known Allergies Allergy (Verified 03/13/24 22:00) Resuscitation Status DNR/DNI Height 5 ft 8 in Weight 73.48 kg Pharmacy Admission Review Renal Dosing Renal Dosing: BUN 37 mg/dL (7-18) H 03/14/24 06:07 Creatinine 1.2 mg/dL (0.70-1.30) 03/14/24 06:07 Medications needing adjustments: Reviewed (CrCl 47.6 mL/min) List of meds needing interventions: Current medications are okay Anticoagulation Anticoagulation: Hgb 12.3 g/dL (13.5-17.5) L 03/14/24 06:07 Hct 37.3 % (40.0-50.0) L 03/14/24 06:07 Plt Count 184 10^3/uL (130-400) 03/14/24 06:07 Creatinine 1.2 mg/dL (0.70-1.30) 03/14/24 06:07 DVT Prophylaxis: Reviewed Medications: Enoxaparin (40mg daily) Relevant Labs Relevant Labs: ESR 8 mm/hr (0-20) 03/13/24 22:45 Sodium 140 mmol/L (136-145) 03/14/24 06:07 Potassium 4.1 mmol/L (3.5-5.1) 03/14/24 06:07 Chloride 109 mmol/L (98-107) H 03/14/24 06:07 Magnesium 2.2 mg/dL (1.8-2.4) 03/14/24 06:07 C-Reactive Protein < 0.50 mg/dL (<or=0.5) 03/13/24 22:45 Electrolytes, C-Reactive P, ESR: Reviewed (No new labs for today) Cardiac Review Cardiac Review: Troponin I 150 ng/L (< or =60) H* 03/15/24 05:37 NT-Pro-B Natriuret Pep 327 pg/mL (<300) H 03/13/24 22:45 BP, HR, EF%: Reviewed (BP/HR WNL, troponin slightly decreased from 153 to 150) QTc Review QTc: Reviewed (471 from 03/13) IV to PO Switch IV Medications: Reviewed Home Meds Home Med List reviewed: Reviewed Relevent Home Meds Not ordered & why?: Lisinopril (on hold per H+P) and ketoconazole cream (PRN) Current Meds Current Medication Order Review: Reviewed
[2024-03-15 15:28] VITALS: BP 136/69; PULSE 73; RESP 16; TEMP 35.9; O2SAT 100
--- NOTE | 2024-03-15 19:06 | W.PM.DS.N ---
Date of service: 03/15/24 Time of Service: 19:06 DS: Diagnosis Discharge Diagnosis (1) Orthostasis: Status: Acute (2) PATRICIA (acute kidney injury): Status: Acute (3) Elevated troponin level not due to acute coronary syndrome: Status: Acute (4) CAD (coronary artery disease), [place] coronary artery: Status: Chronic (5) CHF (congestive heart failure): Status: Chronic (6) Heart block: Status: Chronic (7) Hyperlipidemia: Status: Chronic (8) COPD (chronic obstructive pulmonary disease): Status: Chronic (9) Carotid stenosis, bilateral: Status: Chronic Discharge Plan Disposition Patient Disposition: Home Condition: Good Discharge Details Reason For Visit: Orthostasis, PATRICIA, Elevated troponins Admit Date/Time: 03/14/24 03:17 Admit Provider: Neel Ochoa Attending Provider: Neel Ochoa [facility]: 83 yo M with history of CAD, h/o HFrEF (moderately reduced), COPD, and heart block s/p pacer who presented with an episode of 20 minutes of expressive aphasia in the setting of some less well defined lightheadedness. His speech clarity normalized before getting to the emergency room. He was found to be orthostatic with BP dropping into the 80s standing. He did get a liter of isotonic fluids in the ED. Troponins elevated to around 150 but no change, no ischemic EKG changes. Cr. was elevated at 1.7 but this normalized. He had echocardiogram that showed increase in LVEF to 50-55% (from 40-45%) and no new findings. CTA negative. CT head and CTA head neck showed moderate carotid stenosis but no other significant findings. His device was interrogated but no concerning findings on this or on telemetry. His lisinopril 5mg was held. His orthostatic symptoms resolved, though his SBP continued to drop from 130s to 100s from sitting to standing. MRI was ordered to further assess possible TIA, but our radiology does not do MRI on pacemaker patients. MRI recommended as an outpatient. His high intensity statin and ASA was continued, but his ABCD2 score was 3, so clopidogrel was not added. Case was reviewed with [facility] cardiology at admission and at discharge. It was decided to hold the spironolactone given apparent dehydration on admission. Lisinopril was resumed. Home Meds and New Rx's Prescriptions: Continued ipratropium bromide 42 mcg (0.06 %) spray,non-aerosol 2 spray intranasal QID Rx Instructions: administer into each nostril carvedilol [Coreg] 3.125 mg tablet 3.125 mg PO BID Rx Instructions: must administer with a meal/food ketoconazole 2 % cream 1 applic topical DAILY PRN Rx Instructions: rash/dry skin on forehead lisinopril 5 mg tablet 5 mg PO DAILY rosuvastatin [Crestor] 20 mg tablet 20 mg PO DAILY aspirin 81 mg capsule 81 mg PO DAILY nitroglycerin 0.4 mg tablet, sublingual 0.4 mg sublingual Q5-15M PRN Rx Instructions: do not exceed 3 doses per episode Discontinued spironolactone [Aldactone] 25 mg tablet 25 mg PO DAILY Discharge Instructions Instructions: Transient Ischemic Attack (DC) Additional Instructions: The only medication change is that we want you to stop the spironolactone. This may be causing your blood pressure to be too low. Stand Alone Forms: Nursing Discharge Form Referrals: Ximena Packer [Primary Care Provider] - (Please call and set up a hospital discharge appointment with your pcp in the next 2 weeks) Activity:: Activity as Tolerated Equipment/Supplies:: No Equipment Needed Diet:: As Tolerated Discharge Orders Discharge Orders: Discharge Order (Routine); Ordered 03/15/24 Ordered By: Lamin Hale DS: Summary Time Spent with Patient providing and/or coordinating discharge services: Greater than 30 minutes Status at Discharge Functional status at discharge: independent ambulation Overall status at discharge: patient is back to baseline Mental Status: mental status grossly normal Speech and Movement: speech and movement normal Mood: congruent mood Affect: normal affect Quality:SDOH Health Related Social Needs: No Data to Display Exam Narrative Exam Narrative: General: Patient appears appropriate for age is not younger, alert and oriented x 3 and in no acute distress. HEENT: Normocephalic, PEERL, EOMI. MMM. Neck: Supple without JVD. Lungs: Fair aeration and clear to auscultation. No localizing rales or rhonchi. Heart: Regular rate and rhythm with no murmur or gallop appreciated. gambling monitor shows paced rhythm. Extremities: No clubbing, cyanosis or pitting edema. Neuro: Cranial nerves II through XII grossly intact, no focalizing motor deficits. No tremor, normal tone, normal coordination, normal speech and gait. Psych: Normal affect and mood. No abnormal thought processes. Remote and recent memory intact. Psych Mental Status: mental status grossly normal Speech and Movement: speech and movement normal Mood: congruent mood Affect: normal affect DS: Data Vitals/I&O Vitals and I&O: Vital Signs Temperature 35.9 C L 03/15/24 15:28 Temperature Source Tympanic 03/15/24 15:28 Pulse 73 03/15/24 15:28 Pulse Rhythm Regular 03/15/24 16:00 Pulse 115 H 03/14/24 04:10 Respiratory Rate 16 03/15/24 15:28 Respiratory Effort Normal, Non-Labored 03/15/24 16:00 Respiratory Depth Normal 03/15/24 16:00 Respiratory Pattern Normal 03/15/24 16:00 Blood Pressure 136/69 03/15/24 15:28 Blood Pressure Mean 66 03/14/24 04:01 Blood Pressure Position Sitting 03/13/24 22:02 Pulse Oximetry 100 03/15/24 15:28 Oxygen Delivery Method Room Air 03/15/24 15:28 Oxygen Flow Rate 0 03/15/24 15:28 Pain Level 0 03/15/24 15:28 Comment See orthostatic VS. Pt reports mild lightheadedness with hypotension. CC RN Delores notified. BP obtained manually. 03/14/24 19:51 Intake & Output 03/14/24 03/15/24 03/15/24 23:59 11:59 23:59 Intake Total 260 / 1640 210 / 210 Output Total 500 / 1150 400 / 1300 900 / 1300 Balance -240 / 490 -190 / -1090 -900 / -1090 Intake: IV 1019 10 / 10 Oral 250 / 620 200 / 200 Output: Urine 500 / 1150 400 / 1300 900 / 1300 Stool 0 / 0 Other: Urine Color Yellow Yellow Yellow Urine Appearance Clear Clear Clear Urine Odor Normal None Comment pT independant in bathroom Stool Size Moderate Voiding Methods Toilet Toilet Data Completed and Pending Labs on day of discharge: Labs from last 24 hours 03/15/24 05:37 Troponin I 150 H* PFSH All Active Problems (Updated 03/14/24 @ 10:55 by Neel Ochoa) Carotid stenosis, bilateral (Chronic) PATRICIA (acute kidney injury) (Acute) Orthostatic hypotension (Acute) Non-ST elevation [place] (NSTEMI) (Acute) COPD (chronic obstructive pulmonary disease) (Chronic) PATRICIA (acute kidney injury) (Acute) Hyperlipidemia (Chronic) Heart block (Chronic) CHF (congestive heart failure) (Chronic) CAD (coronary artery disease), [place] coronary artery (Chronic) Elevated troponin level not due to acute coronary syndrome (Acute) Orthostasis (Acute) Social History Smoking/Tobacco Use Status: Former Tobacco Use Quit Date: 02/26/81 Smoking risk assessment performed?: Yes Alcohol Intake: former Drug use: Never Substance use type: does not use Housing: house Do you feel safe at home: Yes Do you feel safe in your relationship?: Yes Time Spent with Patient Time Spent with Patient: 45-69 minutes Time was spent: preparing to see the patient(eg.review tests), obtaining and/or reviewing separately otained hiistory, ordering medications,tests, procedures, referring, communicating with other health critical care physician, indepentently interpreting results, counseling the patient and care coordination
== END 2024-03-15 19:25 | disposition home or self-care (01) ==
LOC: ER 03-14 04:12 → MS 03-14 04:31
PROVIDERS: Family Medicine; Admitting Provider Family Medicine; Emergency Provider Student in an Organized Health Care Education/Training Program; PCP Family Medicine; Visit Provider Family Medicine
DX: I95.1 Orthostatic hypotension (principal); N17.9 Acute kidney failure, unspecified; I25.10 Atherosclerotic heart disease of native coronary artery without angina pectoris; I50.22 Chronic systolic (congestive) heart failure; I45.9 Conduction disorder, unspecified; E78.5 Hyperlipidemia, unspecified; J43.9 Emphysema, unspecified; I65.23 Occlusion and stenosis of bilateral carotid arteries; Z95.0 Presence of cardiac pacemaker; Z66 Do not resuscitate; R74.8 Abnormal levels of other serum enzymes; I25.2 Old myocardial infarction; Z79.899 Other long term (current) drug therapy
CPT/HCPCS: 00123; 36415; 70496; 70498; 71275; 80048; 80053; 85027; 85652; 93005; 93306; 96360; 96361; 96372; 99285; J1650; 81003; 81015; 83605; 83735; 83880; 84443; 84484; 85025; 85379; 86140; 93010; 99223; 99239; G0378; J3490

== ENCOUNTER 2024-05-10 03:59 | Outpatient (CLI) | payer MEDICARE, BC, SELFPAY ==
[2024-05-10 16:44] LABS: Abs Immature Grans 0.03 10^3/uL (0.0-0.06); Absolute Basophil Count 0.04 10^3/uL (0.0-0.2); Absolute Lymphocyte Count 1.77 10^3/uL (1.2-3.4); Absolute Monocyte Count 0.58 10^3/uL (0.1-0.8); Absolute Neutrophil Count 4.42 10^3/uL (1.2-6.7); Basophils % 0.6 %; Eosinophils % 4.2 %; HCT 35.5 % (40.0-50.0); HGB 11.6 g/dL (13.5-17.5); Immature Grans % 0.4 %; Lymphocytes % 24.8 %; MCH 29.7 pg (27.0-33.0); MCHC 32.7 % (32.0-36.0); MCV 91 fL (80-95); MPV 9.7 fL (8.0-11.0); Monocytes % 8.1 %; Neutrophils % 61.9 %; Platelet Count 235 10^3/uL (130-400); RBC 3.91 10^6/uL (4.36-5.78); RDW 15.4 % (11.8-14.1); RDW-SD 50.8 fL; WBC 7.14 10^3/uL (4.4-10.8)
[2024-05-10 16:50] LABS: ESR 13 mm/hr (0-20)
[2024-05-10 20:17] LABS: C-Reactive Protein < 0.50 mg/dL (<or=0.5)
[2024-05-10 20:39] LABS: Ferritin 366 ng/mL (26-388)
[2024-05-11 17:55] LABS: Rheumatoid Factor <8.6 IU/mL (<12.0)
[2024-05-12 13:18] LABS: Lyme Ab w Rflx to Lyme Confirm Negative (Negative)
[2024-05-12 13:46] LABS: ANA Interpretation Positive (Negative); ANA Titer Pattern 1:160 Speckled
[2024-05-14 09:46] LABS: Anaplasma phagocytophilum Negative (Negative); B. miyamotoi PCR Negative (Negative); Babesia divergens/MO-1 Negative (Negative); Babesia duncani Negative (Negative); Ehrlichia chaffeensis Negative (Negative); Ehrlichia ewingii/canis Negative (Negative); Ehrlichia muris eauclairensis Negative (Negative)
[2024-05-14 10:29] LABS: Babesia microti Positive (Negative)
== END 2024-05-10 04:00 | disposition home or self-care (01) ==
LOC: LBO 03:59
PROVIDERS: PCP Family Medicine; Visit Provider Family Medicine
DX: R79.89 Other specified abnormal findings of blood chemistry (principal)
CPT/HCPCS: 36415; 85652; 87798; 82728; 85025; 86038; 86140; 86431; 86618

== ENCOUNTER 2024-12-08 17:48 | Emergency (ER) | payer MEDICARE, BC, SELFPAY ==
[2024-12-08 17:55] VITALS: BP 127/62; PULSE 97; RESP 20; TEMP 36.9; O2SAT 98
[2024-12-08 18:02] VITALS: BP 127/62; PULSE 97; RESP 20; TEMP 36.9; O2SAT 98
--- NOTE | 2024-12-08 18:14 | ED.GENADUL_ITS ---
Discharge Plan Disposition Patient Disposition: Home Condition: Stable Discharge Details Clinical Impression: Stye Primary Care Provider: Ximena Packer ED Provider: Gadiel Interiano Home Meds and New Rx's Prescriptions: New amoxicillin-pot clavulanate 875-125 mg tablet 1 tab PO BID 5 Days Qty: 10 0RF erythromycin 5 mg/gram (0.5 %) ointment 0.5 inch ophthalmic (eye) QID 5 Days Qty: 3.5 0RF Continued ipratropium bromide 42 mcg (0.06 %) spray,non-aerosol 2 spray intranasal QID Rx Instructions: administer into each nostril carvedilol [Coreg] 3.125 mg tablet 3.125 mg PO BID Rx Instructions: must administer with a meal/food ketoconazole 2 % cream 1 applic topical DAILY PRN Rx Instructions: rash/dry skin on forehead lisinopril 5 mg tablet 5 mg PO DAILY rosuvastatin [Crestor] 20 mg tablet 20 mg PO DAILY aspirin 81 mg capsule 81 mg PO DAILY nitroglycerin 0.4 mg tablet, sublingual 0.4 mg sublingual Q5-15M PRN Rx Instructions: do not exceed 3 doses per episode Discharge Instructions Instructions: Stye, Erythromycin (Ophthalmic), Amoxicillin and Clavulanate Additional Instructions: You were seen in the emergency department for the stye to your right lower eyelid. This should resolve with hot compresses, use a clean washcloth in hot water, apply repeated hot compresses to the eye with gentle pressure for 10 minutes each session 3 times per day. The stye should rupture and some pus should drain out. This should improve your lower eyelid redness and swelling, if this swelling is getting worse and you have redness developing to your eye leg pinkeye you need to start both the oral and topical antibiotic sent to your pharmacy. Please return to the emergency department for any severe changes to vision, pain with eye movement of a severe nature, worsening facial swelling and redness, fever. Referrals: Ximena Packer [Primary Care Provider] - Discharge Data Discharge Date/Time-TO BE ENTERED AT DEPARTURE: 12/08/24 18:34 HPI General Date/Time Provider Initiated Documentation: 12/08/24 17:59 . HPI Narrative: 83 year-old male presents to ED today by POV/ambulating with a chief complaint of R eye sty on lower lid, irritation with onset noted over the past 2-3 days. Quality described as mild red swelling to lower eyelid with a pimple-like area just at lash border, no radiation to vision changes, fever, facial swelling. Severity is described as mild. Palliating factors include has been applying a dry warm compress. Provoking factors include nothing specific. Patient not anticoagulated. Related Data Home Medications ?Medication ?Instructions ?Recorded ?Confirmed aspirin 81 mg capsule 81 mg PO DAILY 03/14/24 12/08/24 carvedilol 3.125 mg tablet (Coreg) 3.125 mg PO BID 03/14/24 12/08/24 ipratropium bromide 42 mcg (0.06 2 spray intranasal QID 03/14/24 12/08/24 %) nasal spray ketoconazole 2 % topical cream 1 applic topical DAILY PRN 03/14/24 12/08/24 lisinopril 5 mg tablet 5 mg PO DAILY 03/14/24 12/08/24 nitroglycerin 0.4 mg sublingual 0.4 mg sublingual Q5-15M PRN 03/14/24 12/08/24 tablet rosuvastatin 20 mg tablet (Crestor) 20 mg PO DAILY 03/14/24 12/08/24 amoxicillin 875 mg-potassium 1 tab PO BID 5 days #10 tabs 12/08/24 clavulanate 125 mg tablet erythromycin 5 mg/gram (0.5 %) eye 0.5 inch ophthalmic (eye) QID 5 12/08/24 ointment days #3.5 grams Previous Rx's ?Medication ?Instructions ?Recorded amoxicillin 875 mg-potassium 1 tab PO BID 5 days #10 tabs 12/08/24 clavulanate 125 mg tablet erythromycin 5 mg/gram (0.5 %) eye 0.5 inch ophthalmic (eye) QID 5 12/08/24 ointment days #3.5 grams Allergies Allergy/AdvReac Type Severity Reaction Status Date / Time No Known Allergies Allergy Verified 12/08/24 17:53 General Stated Complaint: EyeProblem SHANNA: 4 Review of Systems All systems reviewed & are unremarkable except as noted in HPI and below Exam Narrative Exam Narrative: GENERAL APPEARANCE: Well-nourished, non-toxic, awake and alert, atraumatic, no acute distress. SKIN: Warm, pink, dry, intact, without rashes/lesions/ulcerations. HEAD: Normocephalic, atraumatic, normal hair distribution for gender/age. EYES: Normal conjunctiva, no exudates on lids/lashes, stye to right lower eyelid with some mild eyelid edema, not consistent with severe cellulitis at this time, EOMs intact without pain, OS 20/25, OD 20/40, vision grossly intact, visual gonzalez intact ENT: Nares patent, no circumoral cyanosis, no facial swelling NECK: Supple, trachea midline, painless cervical ROM. LUNGS/CHEST: Non-labored respirations, normal A/P diameter, symmetrical expansion, no chest wall deformity HEART (CV/PV): No peripheral edema, no JVD. ABDOMEN: Soft, non-distended, no guarding. MSK: Normal ROM, no swelling/deformity to bilateral UEs or LEs, moving all extremities without weakness, no cyanosis, spine midline without tenderness, nor mal curvature. NEURO: Mental Status AAOx4 - alert to person, place, time, events No facial droop, no forehead involvement. Motor: No focal weakness - strength 5/5 in bilateral UEs and LEs, proximal and distal, symmetric. Sensory: sensation intact to light touch globally. Gait normal: patient ambulated without ataxia into ED room. PSYCH: euthymic, cooperative, pleasant, appropriate speech Course Vital Signs Vital signs: Vital Signs Temperature 36.9 C 12/08/24 17:55 Pulse 97 H 12/08/24 17:55 Respiratory Rate 20 12/08/24 17:55 Blood Pressure 127/62 12/08/24 17:55 Pulse Oximetry 98 12/08/24 17:55 Temperature 36.9 C 12/08/24 18:02 Temperature Source Tympanic 12/08/24 18:02 Pulse 97 H 12/08/24 18:02 Respiratory Rate 20 12/08/24 18:02 Blood Pressure 127/62 12/08/24 18:02 Blood Pressure Position Sitting 12/08/24 18:02 Pulse Oximetry 98 12/08/24 18:02 Oxygen Delivery Method Room Air 12/08/24 18:02 Oxygen Flow Rate 0 12/08/24 18:02 Pain Level 6 12/08/24 18:02 Medical Decision Making This dictation utilizes [id number] dictation software and may contain unedited grammatical errors. 83 year-old male presents to ED today by POV/ambulating with a chief complaint of R eye sty on lower lid, irritation with onset noted over the past 2-3 days. Quality described as mild red swelling to lower eyelid with a pimple-like area just at lash border, no radiation to vision changes, fever, facial swelling. Severity is described as mild. Palliating factors include has been applying a dry warm compress. Provoking factors include nothing specific. Patients' medical history: Bilateral carotid stenosis, COPD, CHF, CAD. Family and social history: Noncontributory. Pertinent exam findings / vital signs include stye to right lower eyelid with some mild eyelid edema, not consistent with severe cellulitis at this time, EOMs intact without pain. Differential / pathologies of concern include hordeolum, cellulitis, allergic conjunctivitis. Diagnostic studies of: -None. Interventions of: -Recommend warm compresses over the weekend but I did send both oral and topical antibiotics to [facility] Wednesday if not improving. ED Course/Assessment/Plan: 83-year-old male has a stye on his right lower eyelid, this would likely improve with warm compresses over the weekend, I did direct him to [facility] antibiotics tomorrow to cover for preseptal cellulitis as well as conjunctivitis with Augmentin X 5 days and erythromycin X 5 days for conjunctivitis. Strict return criteria for any acute worsening especially eye pain with eye movement, severe increase in size of redness and eyelid edema. Findings not consistent with orbital cellulitis. Disposition of stye. Patient verbalized understanding of the plan and return to ED criteria and engaged in shared decision making. Medical Records Medical records reviewed: Yes I reviewed the patient's medical records. Quality:SDOH Health Related Social Needs: No Data to Display PFSH All Active Problems (Updated 12/08/24 @ 18:20 by MICHAEL Sanchez) Stye (Acute) Carotid stenosis, bilateral (Chronic) PATRICIA (acute kidney injury) (Acute) Orthostatic hypotension (Acute) Non-ST elevation [place] (NSTEMI) (Acute) COPD (chronic obstructive pulmonary disease) (Chronic) Heart block (Chronic) CHF (congestive heart failure) (Chronic) CAD (coronary artery disease), [place] coronary artery (Chronic) Elevated troponin level not due to acute coronary syndrome (Acute) Orthostasis (Acute) Medical History (Updated 12/08/24 @ 18:20 by MICHAEL Sanchez) Hyperlipidemia Social History Smoking/Tobacco Use Status: Former Tobacco Use Quit Date: 02/26/81 Smoking risk assessment performed?: Yes Alcohol Intake: former Drug use: Never Substance use type: does not use Housing: house Do you feel safe at home: Yes Do you feel safe in your relationship?: Yes
== END 2024-12-08 18:34 | disposition home or self-care (01) ==
PROVIDERS: Emergency Provider Physician Assistant; PCP Family Medicine
DX: H00.012 Hordeolum externum right lower eyelid (principal); I25.10 Atherosclerotic heart disease of native coronary artery without angina pectoris; I50.9 Heart failure, unspecified; J44.9 Chronic obstructive pulmonary disease, unspecified; I25.2 Old myocardial infarction; Z87.891 Personal history of nicotine dependence
CPT/HCPCS: 99283

== ENCOUNTER 2025-04-03 17:47 | Observation (INO) | payer MEDICARE, BC, SELFPAY ==
[2025-04-03] VITALS (138 sets, daily range): BP systolic 104–208; BP diastolic 34–167; PULSE 57–139; RESP 10–36; TEMP 36.3–39.8; O2SAT 84–100
--- NOTE | 2025-04-03 | DI.CT_ITS ---
Exam(s) CT CHEST WO EXAM: CT CHEST WO CLINICAL HISTORY: abnormal cxr. TECHNIQUE: Imaging protocol: Axial computed tomography images were obtained and coronal and sagittal reformatted images were created and reviewed. Lung Computer Aided Detection (CAD) was utilized. COMPARISON: CT CT CHEST PE CTA from 03/13/2024 CR,XR XR CHEST 2V PA LATERAL from 04/03/2025 FINDINGS: Tracheobronchial tree: Patent where visualized. No bronchiectasis is present. Pulmonary parenchyma: Emphysematous changes are seen. The findings are most marked in the right uppe r lobe. There is again seen septal thickening predominantly in the periphery of the lungs. This may be chronic and represent pulmonary fibrosis. Pulmonary edema cannot be entirely excluded. There cooper s been no significant progression of disease compared to the prior examination. No focal consolidati ng infiltrates are present. Calcified granuloma are seen. Mediastinum and Danyell: No dominant adenopathy or fluid collection. The esophagus is unremarkable. Thyroid gland: Unremarkable. Pleura: No effusion or pneumothorax. Heart: Cardiomegaly. Coronary artery calcifications are present. No pericardial effusion. Aorta: Thoracic aorta non-dilated. Atherosclerotic calcification is present. Upper abdomen: There is a hepatic cyst noted. Lymph nodes: Within normal limits. Tubes, Catheters, and Lines: There is a cardiac pacing device in place. Soft tissues: Bilateral gynecomastia is present. Bones:Within normal limits for the patient's age. IMPRESSION: 1. No acute pulmonary process. 2. Findings consistent with pulmonary emphysema. 3. Stable mild thickening of the septa in the periphery of the lungs. This may be chronic in reflect pulmonary fibrosis. Pulmonary edema cannot be entirely excluded. Please correlate clinically. 4. No focal consolidating infiltrates are present. 5. The preliminary [facility] report was reviewed. RADIATION DOSE DELIVERED: 230.88mGy.cm Total DLP 230.88mGy.cm Total DLP DATA REPOSITORY: All CT scans at this facility are submitted to the National Radiology Data Registry (NRDR) Dose Index Registry (DIR) with the [employer] ([employer]). RADIATION OPTIMIZATION: All CT scans at this facility use at least one of these dose optimization te chniques: automated exposure control; mA and/or kV adjustment per patient size (includes targeted exa ms where dose is matched to clinical indication); or iterative reconstruction.
--- NOTE | 2025-04-03 18:00 | RT.EKG_ITS ---
APPROVED REPORT Exam: Resting ECG Reason for Exam: lightheadedness Patient Location: E HR:60 bpm ECG Measurements Heart Rate 60 AXIS NV 115 P 203 QRSd 168 QRS 126 QT 494 T 61 QTc 494 Conclusion Atrial-ventricular dual-paced rhythm Biventricular paced rhythm Rate 60 No significant changes from priors, no STEMI
--- NOTE | 2025-04-03 18:00 | DI.RAD_ITS ---
Exam(s) XR CHEST 2V PA LATERAL EXAM: XR CHEST 2V PA LATERAL CLINICAL HISTORY: fever, runny nose TECHNIQUE: 2D digital imaging was performed of the chest. Images were obtained. PA and lateral v iews were obtained. COMPARISON: No exams were available for comparison FINDINGS: MEDIASTINUM: Normal. HEART: Normal. There is a pacing device in place. PULMONARY VASCULATURE: Normal. LUNGS: There are increased lung markings seen predominantly in the right upper lobe. There is a fine diffuse interstitial process which may reflect chronic underlying fibrosis or possible pulmonary chintan ma. No focal consolidating infiltrates are seen. PLEURAL SPACE: No pleural effusion or pneumothorax. BONE:Within normal limits for the patient's age. OTHER FINDINGS:Normal. IMPRESSION: 1. No focal consolidating infiltrates. 2. Increased lung markings seen predominantly in the right upper lobe. This may be chronic in reflec t pulmonary fibrosis or an interstitial infiltrate. 3. Diffuse fine interstitial process in the lungs which may be chronic or represent interstitial infi ltrate or edema. Please correlate clinically. DATA REPOSITORY: RADIATION DOSE DELIVERED:
--- NOTE | 2025-04-03 18:19 | ED.GENADUL_ITS ---
Discharge Plan Disposition Patient Disposition: Admit to [facility] Condition: Stable Discharge Details Chief Complaint: Fever Clinical Impression: Elevated troponin level not due to acute coronary syndrome, CHF (congestive heart failure), Fever and chills, Thrombocytopenia, Elevated AST (SGOT) Primary Care Provider: Ximena Packer ED Provider: Rebecca Palencia Home Meds and New Rx's Prescriptions: No Action ipratropium bromide 42 mcg (0.06 %) spray,non-aerosol 2 spray intranasal QID Rx Instructions: administer into each nostril carvedilol [Coreg] 3.125 mg tablet 3.125 mg PO BID Rx Instructions: must administer with a meal/food ketoconazole 2 % cream 1 applic topical DAILY PRN Rx Instructions: rash/dry skin on forehead lisinopril 5 mg tablet 5 mg PO DAILY rosuvastatin [Crestor] 20 mg tablet 20 mg PO DAILY aspirin 81 mg capsule 81 mg PO DAILY nitroglycerin 0.4 mg tablet, sublingual 0.4 mg sublingual Q5-15M PRN Rx Instructions: do not exceed 3 doses per episode HPI General Mode of arrival: ambulatory . Date/Time Provider Initiated Documentation: 04/03/25 17:53 . Limitations to Documentation: no limitations . Information obtained by: patient, family and old records reviewed . HPI Narrative: This is an 84-year-old male patient with a history of CAD and NSTEMI, CHF, COPD, and orthostatic hypotension who is presenting for evaluation of fever, body aches, and lightheadedness. The patient began to feel unwell on Wednesday, has noted intermittent fevers to a Tmax of 103, states that he is also had symptoms of general body aches, runny and stuffy nose, and did have 1 episode of nonbloody diarrhea today. No one else in the home has been sick with similar his symptoms. He reports feeling excessively fatigued, and does have some lightheadedness especially when trying to stand. He states that he has been able to drink but has not been eating, denies vertigo. He is not having any headaches, chest pain, shortness of breath, or abdominal pain. Has not taken any falls or sustained injury. Reports that he has not had any tick bites with prolonged attachment, but has noted an area on the lateral aspect of his left chen that he is concerned may have been a tick bite. Related Data Home Medications ?Medication ?Instructions ?Recorded ?Confirmed aspirin 81 mg capsule 81 mg PO DAILY 03/14/24 04/03/25 carvedilol 3.125 mg tablet (Coreg) 3.125 mg PO BID 03/14/24 04/03/25 ipratropium bromide 42 mcg (0.06 2 spray intranasal QID 03/14/24 04/03/25 %) nasal spray ketoconazole 2 % topical cream 1 applic topical DAILY PRN 03/14/24 04/03/25 lisinopril 5 mg tablet 5 mg PO DAILY 03/14/24 04/03/25 nitroglycerin 0.4 mg sublingual 0.4 mg sublingual Q5-15M PRN 03/14/24 04/03/25 tablet rosuvastatin 20 mg tablet (Crestor) 20 mg PO DAILY 03/14/24 04/03/25 Allergies Allergy/AdvReac Type Severity Reaction Status Date / Time No Known Allergies Allergy Verified 04/03/25 17:54 General Stated Complaint: Fever SHANNA: 3 Exam Narrative Exam Narrative: Gen: awake and alert, in no apparent distress. Appears well nourished. HEENT: PERRL, EOMs full and without nystagmus. External ears and nose normal, mucous membranes moist. Neck: Supple, full range of motion, no observable masses Lungs: No increased work of breathing, lung sounds clear and equal bilaterally without wheezes, rhonchi, or rales. CV: Heart with regular rate and rhythm, no murmurs auscultated. Strong and symmetrical radial pulses. Abdomen: Soft, nondistended, non-tender to palpation. No rigidity, rebound tenderness, or guarding. MSK: No joint swelling, no redness. Full ROM without limitation, no external traumatic findings. Skin: No rashes or lesions to visualized skin other than 1/2 cm area of abraded given to the lateral left chen. Normal color, warm, and dry. Neuro: Cranial nerves II-XII intact and symmetrical bilaterally. 5/5 strength in all muscle groups x4 extremities. No sensory deficits. Ambulates with steady gait. Psych: Appropriate for situation. Course Vital Signs Vital signs: Vital Signs Temperature 36.3 C L 04/03/25 17:50 Pulse 84 04/03/25 17:50 Respiratory Rate 18 04/03/25 17:50 Blood Pressure 104/52 L 04/03/25 17:50 Pulse Oximetry 95 04/03/25 17:50 Temperature 36.3 C L 04/03/25 17:57 Pulse 84 04/03/25 17:57 Respiratory Rate 18 04/03/25 17:57 Blood Pressure 104/52 L 04/03/25 17:57 Pulse Oximetry 95 04/03/25 17:57 Oxygen Delivery Method Room Air 04/03/25 17:57 Oxygen Flow Rate 0 04/03/25 17:57 Pain Level 0 04/03/25 17:57 Lab/Test Results Lab/Test Results: 04/03/25 18:09 Blood Blood Culture - Pending 04/03/25 18:09 Blood Blood Culture - Pending Medical Decision Making This is an 84-year-old male patient presenting for evaluation of fever, chills, lightheadedness and bodyaches. My differential includes but is not limited to URI, pneumonia, bronchitis, urinary tract infection, certainly considered tickborne illnesses, no hemodynamic evidence at this time for sepsis and is afebrile and nontachycardic patient. Did consider bacteremia, patient without abdominal discomfort to suggest severe intra-abdominal pathology. No chest pain to suggest ACS, certainly considered anemia, electrolyte derangements, kidney injury, liver disease. lightheadedness potentially due to poor p.o. intake and dehydration, no vertiginous symptoms or neurodeficits to increase my concern for stroke or intracranial abnormalities, no evidence on physical exam or history for meningitis or encephalitis, no trauma to suggest intracranial hemorrhage. We will obtain a broad laboratory workup to include CBC, CMP, magnesium, troponin, lactate, urinalysis, viral swab, and tick panel. Will obtain a chest x-ray. - I reviewed the patient's laboratory studies, he has no leukocytosis or anemia but does have a new thrombocytopenia with a platelet count of 114. Lactate is low at 1.1, chemistry panel is without electrolyte derangement, patient does have some baseline renal dysfunction with a BUN of 32 and a creatinine 1.4. Lightly elevated bilirubin to 1.2 and an AST that is elevated 2018. Initial troponin is elevated to 293, 1 hour delta recheck 290. The patient had an EKG that showed a paced rhythm, with no ischemic changes and no significant changes from prior. He remains without chest pain but continues to endorse some generalized bodyaches. His historical troponin levels have been elevated that this is above his baseline compared to priors. Urinalysis is notable for large blood but only 3-5 RBCs, I question hemolysis. No flank pain to suggest renal stone. The constellation of transaminitis, thrombocytopenia, and hemolysis is concerning for tickborne illness including anaplasmosis, early ketosis, babesiosis, Lyme disease. I did provide the patient with a dose of IV doxycycline. I reached out to [facility] cardiology, who recommended trending of the troponins, echo in the morning, and diuresis as needed. I did have the laboratory technicians review the peripheral smear, and they note no intracellular parasites suggestive of babesiosis. I reached out to our hospitalist team who is graciously accepted this patient for admission for ongoing workup and management of his fever and chills, body aches, laboratory abnormalities, and elevated troponin. The patient remained hemodynamically appropriate while under my care and was transferred to their service without incident. Rebecca Palencia MD Quality:SDOH Health Related Social Needs: No Data to Display [facility] All Active Problems (Updated 04/03/25 @ 22:25 by Rebecca Palencia MD) Elevated AST (SGOT) (Acute) Thrombocytopenia (Chronic) Fever and chills (Acute) Carotid stenosis, bilateral (Chronic) PATRICIA (acute kidney injury) (Acute) Orthostatic hypotension (Acute) Non-ST elevation [place] (NSTEMI) (Acute) COPD (chronic obstructive pulmonary disease) (Chronic) Heart block (Chronic) CHF (congestive heart failure) (Chronic) CAD (coronary artery disease), [place] coronary artery (Chronic) Elevated troponin level not due to acute coronary syndrome (Acute) Orthostasis (Acute) Medical History (Updated 04/03/25 @ 22:25 by Rebecca Palencia MD) Hyperlipidemia Social History Smoking/Tobacco Use Status: Former Tobacco Use Quit Date: 02/26/81 Smoking risk assessment performed?: Yes Alcohol Intake: former Drug use: Never Substance use type: does not use Housing: house Do you feel safe at home: Yes Do you feel safe in your relationship?: Yes
[2025-04-03 18:57] LABS: Lactate 1.1 mmol/L (<or=2.0)
[2025-04-03 19:01] LABS: Abs Immature Grans 0.02 10^3/uL (0.0-0.06); Absolute Basophil Count 0.02 10^3/uL (0.0-0.2); Absolute Monocyte Count 0.13 10^3/uL (0.1-0.8); Absolute Neutrophil Count 4.84 10^3/uL (1.2-6.7); Basophils % 0.4 %; HCT 41.4 % (40.0-50.0); HGB 13.6 g/dL (13.5-17.5); Immature Grans % 0.4 %; Lymphocytes % 5.6 %; MCH 29.2 pg (27.0-33.0); MCHC 32.9 % (32.0-36.0); MCV 89 fL (80-95); MPV 10.5 fL (8.0-11.0); Monocytes % 2.4 %; Neutrophils % 91.2 %; Platelet Count 114 10^3/uL (130-400); RBC 4.65 10^6/uL (4.36-5.78); RDW 13.9 % (11.8-14.1); RDW-SD 45.2 fL; WBC 5.31 10^3/uL (4.4-10.8)
[2025-04-03 19:22] LABS: ALT 61 U/L (16-63); AST 118 U/L (15-37); Albumin 3.5 g/dL (3.4-5.0); Alkaline Phosphatase 115 U/L (46-116); Anion Gap 7.7 mmol/L (3-11); BUN 32 mg/dL (7-18); Bilirubin, Total 1.2 mg/dL (0.2-1.0); CO2 29.3 mmol/L (21.0-32.0); CREATININE 1.4 mg/dL (0.70-1.30); Calcium 8.5 mg/dL (8.5-10.1); Chloride 101 mmol/L (98-107); Estimated GFR 49.25 (mL/min/1.73m2); Glucose 106 mg/dL (74-106); Magnesium 2.2 mg/dL (1.8-2.4); Potassium 4.3 mmol/L (3.5-5.1); Sodium 138 mmol/L (136-145)
[2025-04-03 19:23] LABS: Troponin I 293 ng/L (<or=76)
[2025-04-03 19:39] LABS: Bilirubin Small (Negative); Blood Large (Negative); Clarity Clear (Clear); Glucose Negative (Negative); Ketones 15 mg/dL (Negative); Leukocyte Esterase Negative (Negative); Nitrite Negative (Negative); Specific Gravity 1.025 (1.005-1.025); pH 5.5 (5-8)
[2025-04-03 19:47] LABS: Bacteria Negative HPF (Negative); C & S Indicated? No; Casts 0-2 Coarse Granular LPF (Negative); Crystals Many Amorphous HPF (Negative); Epithelial Cells Few HPF (Negative); Mucus Heavy (Negative); WBC 0-2 HPF (0-5)
[2025-04-03] MEDS: Lactated Ringers 500 ML IV (19:59)
[2025-04-03 20:16] LABS: Troponin I 290 ng/L (<or=76)
--- NOTE | 2025-04-03 20:24 | DI.VRAD_ITS ---
PROCEDURE INFORMATION: Exam: XR Chest Exam date and time: 04/03/2025 7:41 PM Age: 84 years old Clinical indication: Other: Fever, runny nose TECHNIQUE: Imaging protocol: Radiologic exam of the chest. Views: 2 views. COMPARISON: CT CHEST PE CTA 03/13/2024 11:47 PM FINDINGS: Tubes, catheters and devices: A pacemaker device is present, and its leads are in appropriate position. Lungs: There is pulmonary venous congestion. There is diffuse interstitial edema. Underlying inflammatory or infectious process not excluded. The lungs are hyperinflated, consistent with underlying small airways disease. Honeycombing and chronic interstitial fibrotic changes present within predominantly the right upper lobe lung with paraseptal emphysematous changes. Pleural spaces: There are no pleural effusions. No evidence of pneumothorax. Heart/Mediastinum: The heart is enlarged. There is prominence of the mediastinum. Bones/joints: The skeletal structures and soft tissues show no evidence of fracture or other acute processes. Soft tissues: The soft tissues of the extrathoracic region are unremarkable. IMPRESSION: 1. Probable congestive heart failure. Underlying inflammatory or infectious process not excluded. 2. The lungs are hyperinflated, consistent with underlying small airways disease. 3. Honeycombing and chronic interstitial fibrotic changes present within predominantly the right upper lobe lung with paraseptal emphysematous changes. Dictated and Authenticated by: Ildefonso Arevalo MD. Orderin [facility] Jong Fernandez MD
[2025-04-03] MEDS: DOXYCYCLINE 100 MG in Normal Saline 100 ML IVPB (20:39)
[2025-04-03 21:15] LABS: Lab Add On Test DONE
[2025-04-03 21:28] LABS: RBC Morphology Normal
[2025-04-03 21:31] LABS: Diff Comment Diff Reviewed
[2025-04-03 21:33] LABS: NT-proBNP 2472 pg/mL (<300)
[2025-04-03 22:53] LABS: Troponin I 303 ng/L (<or=76)
[2025-04-03 22:58] LABS: Creatine Kinase 2904 U/L (39-308)
--- NOTE | 2025-04-03 23:01 | W.PM.HP.N ---
Date of service: 04/03/25 Time of Service: 23:01 Assessment and Plan Assessment and plan (1) Orthostasis: Status: Acute Assessment and plan: recheck in am after gently hydration (2) Elevated troponin level not due to acute coronary syndrome: Status: Acute Assessment and plan: recheck in am, continue with asa (viral etiology?) (3) CAD (coronary artery disease), [place] coronary artery: Status: Chronic Assessment and plan: reached out to cards at [facility]. Review ED records for more info (4) Heart block: Status: Chronic Assessment and plan: PT does have a PPM. Tick exposure including Lyme's can cause bradycardia. Tick panel pending. Empiric doxy for now (5) Thrombocytopenia: Status: Chronic Assessment and plan: Exact etiology is unknown but could once again be 2/2 zoonotic exposure. Will hold lovenox and dvtp with scd (6) Fever and chills: Status: Acute Assessment and plan: monitor and add antipyretics as needed Will also order ct chest 2/2 cxr read IMPRESSION: 1. Probable congestive heart failure. Underlying inflammatory or infectious process not excluded. 2. The lungs are hyperinflated, consistent with underlying small airways disease. 3. Honeycombing and chronic interstitial fibrotic changes present within predominantly the right upper lobe lung with paraseptal emphysematous changes. (7) Hyperlipidemia: Assessment and plan: Will hold statin 2/2 concerns about rhabdo causing weakness. CK is pending (8) Hematuria: Status: Acute Assessment and plan: Exact etiology is unknown but will need to have follow up to ensure resolution. PSA pending (9) Widened pulse pressure: Status: Acute Assessment and plan: Will order echo History of Present Illness History of Present Illness Chief Complaint: weakness Narrative: This is a 84-year-old gentleman who remains quite active despite his age. Presents with approximately 2 weeks of worsening fatigue as well as worsening shortness of breath. 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 His chart review from last year did indicate an infection. Patient states that he had 1 episode of nonbloody diarrhea as well as subjective fevers. Patient denies any recent foreign travel, zoonotic infection although he does worry about tick exposure, new foods, any changes to his medications. Per my discussion with the ED physician his flu as well as COVID swab were negative. He was treated with doxycycline empirically for concerns about Lyme's disease. Workup did indicate an elevation in his troponins and consult to cardiology in [facility] were pursued. Their recommendation is to just continue with serial enzymes monitor for improvement. The patient denies significant chest pain at this time. 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 The patient denies any significant alcohol or tobacco use. Review of Systems All systems reviewed & are unremarkable except as noted in HPI and below PFSH All Active Problems (Updated 04/03/25 @ 23:07 by Jeff Romero MD) Widened pulse pressure (Acute) Hematuria (Acute) Elevated AST (SGOT) (Acute) Thrombocytopenia (Chronic) Fever and chills (Acute) Carotid stenosis, bilateral (Chronic) PATRICIA (acute kidney injury) (Acute) Orthostatic hypotension (Acute) Non-ST elevation [place] (NSTEMI) (Acute) COPD (chronic obstructive pulmonary disease) (Chronic) Heart block (Chronic) CHF (congestive heart failure) (Chronic) CAD (coronary artery disease), [place] coronary artery (Chronic) Elevated troponin level not due to acute coronary syndrome (Acute) Orthostasis (Acute) Medical History (Updated 04/03/25 @ 23:07 by Jeff Romero MD) Hyperlipidemia Social History Smoking/Tobacco Use Status: Former Tobacco Use Quit Date: 02/26/81 Smoking risk assessment performed?: Yes Alcohol Intake: former Drug use: Never Substance use type: does not use Housing: house Do you feel safe at home: Yes Do you feel safe in your relationship?: Yes Meds Allergies and Home Medications Allergies Allergy/AdvReac Type Severity Reaction Status Date / Time No Known Allergies Allergy Verified 04/03/25 17:54 Home Medications ?Medication ?Instructions ?Recorded ?Confirmed ?Type aspirin 81 mg capsule 81 mg PO DAILY 03/14/24 04/03/25 History carvedilol 3.125 mg tablet (Coreg) 3.125 mg PO BID 03/14/24 04/03/25 History ipratropium bromide 42 mcg (0.06 2 spray intranasal QID 03/14/24 04/03/25 History %) nasal spray ketoconazole 2 % topical cream 1 applic topical DAILY PRN 03/14/24 04/03/25 History lisinopril 5 mg tablet 5 mg PO DAILY 03/14/24 04/03/25 History nitroglycerin 0.4 mg sublingual 0.4 mg sublingual Q5-15M PRN 03/14/24 04/03/25 History tablet rosuvastatin 20 mg tablet (Crestor) 20 mg PO DAILY 03/14/24 04/03/25 History Exam Narrative Exam Narrative: HEENT-normocephalic atraumatic mucous membranes moist oropharynx clear extract motions are intact Neck-no lymphadenopathy no JVD no thyromegaly Cardiovascular-regular rate and rhythm no murmur rubs or gallops Lungs-clear to auscultation bilaterally with good air exchange no accessory muscle use Abdomen-soft nontender nondistended bowel sounds active Extremities-no cyanosis clubbing or edema bilaterally Neurologic-cranial nerves II through XII intact as tested reflexes in upper extremity normal as tested. Finger-nose test was essentially benign [place]-patient does have a noticeable tremor mostly in his upper extremities. Results Labs 04/03/25 18:43 04/03/25 18:43 Labs: Laboratory Results - last 24 hr 04/03/25 04/03/25 04/03/25 18:43 19:23 19:53 WBC 5.31 RBC 4.65 Hgb 13.6 Hct 41.4 MCV 89 MCH 29.2 MCHC 32.9 RDW 13.9 Plt Count 114 L MPV 10.5 Immature Gran % 0.4 Neutrophils % 91.2 Lymphocytes % 5.6 Monocytes % 2.4 Eosinophils % 0.0 Basophils % 0.4 Nucleated RBC % 0.0 Absolute Neutrophils 4.84 Absolute Lymphocytes 0.30 L Absolute Monocytes 0.13 Absolute Eosinophils 0.00 Absolute Basophils 0.02 RBC Morphology Normal VBG Lactate 1.1 Sodium 138 Potassium 4.3 Chloride 101 Carbon Dioxide 29.3 Anion Gap 7.7 BUN 32 H Creatinine 1.4 H Est GFR (CKD-EPI 2020) 49.25 Glucose 106 Calcium 8.5 Magnesium 2.2 Total Bilirubin 1.2 H AST 118 H ALT 61 Alkaline Phosphatase 115 Creatine Kinase Troponin I 293 H* 290 H* NT-Pro-B Natriuret Pep 2472 H Total Protein 7.0 Albumin 3.5 Urine Color Dark Yellow Urine Clarity Clear Urine pH 5.5 Ur Specific [place] 1.025 Urine Protein >=300 H Urine Ketones 15 H Urine Blood Large H Urine Nitrite Negative Urine Bilirubin Small H Urine Urobilinogen 1.0 H Ur Leukocyte Esterase Negative Urine RBC 3-5 H Urine WBC 0-2 Ur Epithelial Cells Few Urine Crystals Many Amorphous Urine Bacteria Negative Urine Casts 0-2 Coarse Granular Urine Mucus Heavy Ur Culture Indicated? No Urine Glucose Negative Add-On Test Request 04/03/25 04/03/25 20:26 22:28 WBC RBC Hgb Hct MCV MCH MCHC RDW Plt Count MPV Immature Gran % Neutrophils % Lymphocytes % Monocytes % Eosinophils % Basophils % Nucleated RBC % Absolute Neutrophils Absolute Lymphocytes Absolute Monocytes Absolute Eosinophils Absolute Basophils RBC Morphology VBG Lactate Sodium Potassium Chloride Carbon Dioxide Anion Gap BUN Creatinine Est GFR (CKD-EPI 2020) Glucose Calcium Magnesium Total Bilirubin AST ALT Alkaline Phosphatase Creatine Kinase 2904 H Troponin I 303 H* NT-Pro-B Natriuret Pep Total Protein Albumin Urine Color Urine Clarity Urine pH Ur Specific [place] Urine Protein Urine Ketones Urine Blood Urine Nitrite Urine Bilirubin Urine Urobilinogen Ur Leukocyte Esterase Urine RBC Urine WBC Ur Epithelial Cells Urine Crystals Urine Bacteria Urine Casts Urine Mucus Ur Culture Indicated? Urine Glucose Add-On Test Request DONE Last Vital Signs Temp 36.3 C L 04/03/25 17:57 Pulse 58 L 04/03/25 21:30 Resp 13 04/03/25 21:30 BP 133/39 L 04/03/25 21:16 Pulse Ox 100 04/03/25 21:30 Time Spent Time spent with Patient: 55-74 minutes Time was spent: preparing to see the patient(eg.review tests), obtaining and/or reviewing separately otained hiistory, ordering medications,tests, procedures, referring, communicating with other health farm or ranch animal caretaker, indepentently interpreting results, counseling the patient and care coordination
[2025-04-03] MEDS: Acetaminophen 325 MG TAB PO (23:34)
[2025-04-04] VITALS (390 sets, daily range): BP systolic 90–167; BP diastolic 16–98; PULSE 55–166; RESP 8–27; TEMP 36.4–39.6; O2SAT 89–100
[2025-04-04] MEDS: Normal Saline 1,000 ML 150 ML IV (00:32)
[2025-04-04] MEDS: cefTRIAXone 2 GM/50 ML BAG IVPB ×2 (00:51→21:40)
--- NOTE | 2025-04-04 01:18 | DI.VRAD_ITS ---
PROCEDURE INFORMATION: Exam: CT Chest Without Contrast; Diagnostic Exam date and time: 04/04/2025 12:00 AM Age: 84 years old Clinical indication: Other: Abnormal cxr TECHNIQUE: Imaging protocol: Diagnostic computed tomography of the chest without contrast. 3D rendering (Not supervised by radiologist): MIP and/or 3D reconstructed images were created by the technologist. COMPARISON: CT CHEST PE CTA 03/13/2024 11:47 PM FINDINGS: Thyroid: Small thyroid gland. Correlation with thyroid function testing recommended to exclude thyroid insufficiency. Coarse thyroid calcification on the right. Lungs: Changes of emphysema. Patchy reticular opacities, probably representing atelectasis and/or scarring. No region of pulmonary consolidation. Scattered micronodular densities, nonspecific. Mild smooth thickening of the interlobular pulmonary septa. Pleural spaces: Trace pleural fluid on the right. No left-sided pleural effusion. No pneumothorax. Heart: Normal-sized heart. Severe coronary artery calcification. Cardiac pacemaker device implanted in the left anterior chest wall with leads in the right atrium, right ventricle, and coronary sinus. Lymph nodes: No pathologically enlarged mediastinal or hilar lymph nodes. Vasculature: No thoracic aortic aneurysm. Liver: Small indeterminate hypoattenuating hepatic lesion, incompletely characterized but most likely a small cyst or hemangioma. Bones/joints: Lower ribs partially excluded from view and incompletely evaluated. Otherwise, no acute fracture seen among the bones of the chest. Spinal degenerative change with anteriorly bridging osteophytes flowing along the anterior thoracic margin. Soft tissues: Mild symmetric gynecomastia, nonspecific but commonly seen in the setting of chronic liver disease. IMPRESSION: 1. Tiny right pleural effusion. 2. Emphysematous changes. Patchy reticular opacities, probably representing atelectasis and scarring. 3. Mild smooth thickening of the interlobular pulmonary septa suggesting possible mild interstitial pulmonary edema. Dictated and Authenticated by: Keo Cortez MD. Orderin Nick Aguilar MD
[2025-04-04 02:30] LABS: Troponin I 337 ng/L (<or=76)
[2025-04-04] MEDS: Acetaminophen 325 MG TAB PO (04:13)
[2025-04-04 06:24] LABS: HCT 38.5 % (40.0-50.0); HGB 12.4 g/dL (13.5-17.5); MCH 28.8 pg (27.0-33.0); MCHC 32.2 % (32.0-36.0); MCV 89 fL (80-95); RBC 4.31 10^6/uL (4.36-5.78); RDW 13.9 % (11.8-14.1); RDW-SD 45.7 fL; WBC 4.99 10^3/uL (4.4-10.8)
[2025-04-04 07:22] LABS: ALT 54 U/L (16-63); AST 121 U/L (15-37); Albumin 2.9 g/dL (3.4-5.0); Alkaline Phosphatase 98 U/L (46-116); Anion Gap 10.7 mmol/L (3-11); BUN 30 mg/dL (7-18); Bilirubin, Total 0.7 mg/dL (0.2-1.0); CO2 28.3 mmol/L (21.0-32.0); CREATININE 1.4 mg/dL (0.70-1.30); Calcium 8.1 mg/dL (8.5-10.1); Chloride 100 mmol/L (98-107); Estimated GFR 49.25 (mL/min/1.73m2); Glucose 108 mg/dL (74-106); Potassium 3.7 mmol/L (3.5-5.1); Sodium 139 mmol/L (136-145); Total Protein 6.1 g/dL (6.4-8.2)
[2025-04-04 07:27] LABS: Troponin I 344 ng/L (<or=76)
[2025-04-04 07:39] LABS: Absolute Lymphocyte Count 0.25 10^3/uL (1.2-3.4); Absolute Neutrophil Count 4.44 10^3/uL (1.2-6.7)
[2025-04-04 07:40] LABS: Platelet Count 79 10^3/uL (130-400)
--- NOTE | 2025-04-04 08:40 | INITIAL_ITS ---
Date of service: 04/04/25 Time of Service: 13:55 Care Management Initial Assmt Initial Assessment Reason for Hospitalization: Fatigue Functional Status/Living Situation Patient Presentation: Farhad was sitting up in his bed, when CM arrived. He is very pleasant and willing to engage in conversation, with this short story writer. Farhad presented to the ED for evaluation of fever, body aches, and lightheadedness. It was found that his troponin and and LFT's, are elevated. Farhad lives in a single family home, in [place] with his -Michelle. Him and Michelle has 6 grown children, 5 daughters and a son; From these children he has about 20 grandchildren and multiple great grandchildren. Farhad explained that him and his are from [facility] but moved to the [place] ago; his children now live in various locations throughout the world. The two closest are in [place], one in [facility], others living in [place]; Farhad and Michelle talk to their children, daily. Farhad states, him and his support each other. They are active and enjoy playing tennis, and exercising; He states, their friends are all people they have worked with, or exercise with. Farhad also states he enjoys learning. He reports he received an undergraduate degree in Physics, from [employer]. 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 Per Farhad, he is an established patient with [facility]; He recalls filing AD's with them, CM has reached out to retrieve a copy of these. Both Farhad, and Michelle drive and he states, all of their needs are met. Farhad states, he would like to start outpatient rehab s/p d/c, to regain strength, CM comminuted this with the provider. CM will continue to follow. 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).) Instrumental Activities of Daily Living (ADLs): Independent Activities/Hobbies/SocialSupport: yoga, [place], tennis Medications Medication Management: No Issues/Barriers identified (Uses [facility]) Physical Functioning/Mobility Assistive Device: n/a Advance Directives Advance Directives: Do you have an Advance Directive: N 03/28/25 11:30 AD On File at [facility]: N 03/28/25 11:30 Date Asked 04/03/25 04/03/25 18:04 AD Date Reviewed COLST On File at [facility] COLST Date Scanned Code Status Resuscitation Status Full Code Portal Pt does not currently have a portal and education provided: Yes Insurance Coverage/Financial Issues Insurance: Medicare Part A & B - [id number] /[facility] - [id number] Care Team Visit Care Team Role Provider Type Alvarez Fuentes MD MD [facility] STAFF PHYSICIAN Ximena Packer Primary Care Provider NON-[facility] STAFF DAWNA Pelaez Other Providers MACHINE HOOP MAKER HELPER Cassie Concepcion Other Providers MACHINE HOOP MAKER HELPER Susan Villarreal Other Providers MACHINE HOOP MAKER HELPER Valerie Coats RN Other Providers MACHINE HOOP MAKER HELPER Mercedes Romero Other Providers MACHINE HOOP MAKER HELPER Rebecca Palencia MD Emergency Provider [facility] STAFF PHYSICIAN Jeff Romero MD Admit Provider [facility] STAFF PHYSICIAN Attending Provider Discharge Potential Discharge Needs: PCP F/U Appt Anticipated Barriers to Discharge: Medical Status Patient/Family Education Needs: Review discharge instructions, discuss Ask Me Three Transportation: Private vehicle Plan: Anticipate Farhad will be discharged home, once medically ready. He will follow up with his community providers and discharge plan of care. He will transport home via private vehicle by family. Social Determinants of Health Screening Will the Patient Participate in the Screening?: Declined to provide PFSH All Active Problems (Updated 04/04/25 @ 10:55 by Alvarez Fuentes MD) Elevated LFTs (Acute) Widened pulse pressure (Acute) Hematuria (Acute) Elevated AST (SGOT) (Acute) Thrombocytopenia (Chronic) Fever and chills (Acute) Carotid stenosis, bilateral (Chronic) PATRICIA (acute kidney injury) (Acute) Orthostatic hypotension (Acute) Non-ST elevation [place] (NSTEMI) (Acute) COPD (chronic obstructive pulmonary disease) (Chronic) Heart block (Chronic) CHF (congestive heart failure) (Chronic) CAD (coronary artery disease), [place] coronary artery (Chronic) Elevated troponin level not due to acute coronary syndrome (Acute) Orthostasis (Acute) Medical History (Updated 04/04/25 @ 10:55 by Alvarez Fuentes MD) Hyperlipidemia Social History Smoking/Tobacco Use Status: Former Tobacco Use Quit Date: 02/26/81 Smoking risk assessment performed?: Yes Alcohol Intake: former Drug use: Never Substance use type: does not use Housing: house Do you feel safe at home: Yes Do you feel safe in your relationship?: Yes Readmission Within the Past 30 Days Yes or No: No
[2025-04-04] MEDS: Normal Saline 1,000 ML 100 ML IV ×2 (10:03→20:08)
[2025-04-04] MEDS: Doxycycline Hyclate 100 MG CAP PO ×2 (10:03→19:19)
[2025-04-04] MEDS: Aspirin E.C. 81 MG TABEC PO (10:03)
[2025-04-04] MEDS: Normal Saline Flush 10 ML SYR IVP ×2 (10:04→19:19)
--- NOTE | 2025-04-04 10:50 | W.PM.PROGNOT ---
Date of Service Date of service: 04/04/25 Time of Service: 10:50 Assessment and Plan Assessment and plan (1) Fever and chills: Status: Acute Assessment and plan: -presumes secondary to tick bourne illness given fever, malaise, muscle weakness, elevated LFTs and thrombocytopenia -started on IV doxy with improved symptoms, will continue -f/u tick panel, plan to DC AM 04/14 if continued improvement (2) Orthostasis: Status: Acute Assessment and plan: -orthostatic in ED -will recheck and given additional fluids as needed (3) Elevated troponin level not due to acute coronary syndrome: Status: Acute Assessment and plan: -elevated up to 337 overnight -344 in AM, relatively flat at this time -patient remains without chest pain -may be secondary to viral etiology or tick bourne illness (4) CAD (coronary artery disease), [place] coronary artery: Status: Chronic Assessment and plan: -continue home asa -holding home crestor as noted below (5) Heart block: Status: Chronic Assessment and plan: -pacemaker in place (6) Thrombocytopenia: Status: Chronic Assessment and plan: -Exact etiology is unknown but could once again be 2/2 zoonotic exposure -holding lovenox -platelets 79 on admission, down to 114 AM 04/04 -f/u AM CBC (7) Hyperlipidemia: Assessment and plan: -Will hold statin 2/2 elevated LFTs (8) Elevated LFTs: Status: Acute Assessment and plan: -in ED Tbili 1.2, AST 118, ALT 61, Alk phos 115 -AM 04/03 Tbili 0.7, AST 121 -may be secondary to statin or tick bourne illness -holding statin -f/u tick panel as noted above Subjective Subjective Interval history since last seen: Patient states that he is feeling better today as compared to admission. He understands plan to continue doxycycline and monitor results of tick panel. Exam Narrative Exam Narrative: Well-appearing older gentleman sitting up at the edge of the bed no acute distress, ANO x 4, heart regular rhythm, lungs good auscultation bilaterally, abdomen soft, nontender, nondistended Objective Last Vital Signs Temp 97.7 F 04/04/25 08:00 Pulse 60 04/04/25 08:20 Resp 27 H 04/04/25 08:20 BP 97/57 L 04/04/25 08:16 Pulse Ox 98 04/04/25 08:20 Laboratory Results - last 24 hr 04/03/25 04/03/25 04/03/25 18:43 19:23 19:53 WBC 5.31 RBC 4.65 Hgb 13.6 Hct 41.4 MCV 89 MCH 29.2 MCHC 32.9 RDW 13.9 Plt Count 114 L MPV 10.5 Immature Gran % 0.4 Neutrophils % 91.2 Lymphocytes % 5.6 Monocytes % 2.4 Eosinophils % 0.0 Basophils % 0.4 Nucleated RBC % 0.0 Absolute Neutrophils 4.84 Absolute Lymphocytes 0.30 L Absolute Monocytes 0.13 Absolute Eosinophils 0.00 Absolute Basophils 0.02 RBC Morphology Normal VBG Lactate 1.1 Sodium 138 Potassium 4.3 Chloride 101 Carbon Dioxide 29.3 Anion Gap 7.7 BUN 32 H Creatinine 1.4 H Est GFR (CKD-EPI 2020) 49.25 Glucose 106 Calcium 8.5 Magnesium 2.2 Total Bilirubin 1.2 H AST 118 H ALT 61 Alkaline Phosphatase 115 Creatine Kinase Troponin I 293 H* 290 H* NT-Pro-B Natriuret Pep 2472 H Total Protein 7.0 Albumin 3.5 Urine Color Dark Yellow Urine Clarity Clear Urine pH 5.5 Ur Specific [place] 1.025 Urine Protein >=300 H Urine Ketones 15 H Urine Blood Large H Urine Nitrite Negative Urine Bilirubin Small H Urine Urobilinogen 1.0 H Ur Leukocyte Esterase Negative Urine RBC 3-5 H Urine WBC 0-2 Ur Epithelial Cells Few Urine Crystals Many Amorphous Urine Bacteria Negative Urine Casts 0-2 Coarse Granular Urine Mucus Heavy Ur Culture Indicated? No Urine Glucose Negative Add-On Test Request 04/03/25 04/03/25 04/03/25 20:26 22:28 23:14 WBC RBC Hgb Hct MCV MCH MCHC RDW Plt Count MPV Immature Gran % Neutrophils % Lymphocytes % Monocytes % Eosinophils % Basophils % Nucleated RBC % Absolute Neutrophils Absolute Lymphocytes Absolute Monocytes Absolute Eosinophils Absolute Basophils RBC Morphology VBG Lactate Sodium Potassium Chloride Carbon Dioxide Anion Gap BUN Creatinine Est GFR (CKD-EPI 2020) Glucose Calcium Magnesium Total Bilirubin AST ALT Alkaline Phosphatase Creatine Kinase 2904 H Troponin I 303 H* Cancelled NT-Pro-B Natriuret Pep Total Protein Albumin Urine Color Urine Clarity Urine pH Ur Specific [place] Urine Protein Urine Ketones Urine Blood Urine Nitrite Urine Bilirubin Urine Urobilinogen Ur Leukocyte Esterase Urine RBC Urine WBC Ur Epithelial Cells Urine Crystals Urine Bacteria Urine Casts Urine Mucus Ur Culture Indicated? Urine Glucose Add-On Test Request DONE 04/04/25 04/04/25 04/04/25 00:14 02:00 05:49 WBC 4.99 RBC 4.31 L Hgb 12.4 L Hct 38.5 L MCV 89 MCH 28.8 MCHC 32.2 RDW 13.9 Plt Count 79 L MPV 11.0 Immature Gran % 0.0 Neutrophils % 89.0 Lymphocytes % 5.0 Monocytes % 6.0 Eosinophils % 0.0 Basophils % 0.0 Nucleated RBC % 0.0 Absolute Neutrophils 4.44 Absolute Lymphocytes 0.25 L Absolute Monocytes 0.30 Absolute Eosinophils 0.00 Absolute Basophils 0.00 RBC Morphology VBG Lactate Sodium 139 Potassium 3.7 Chloride 100 Carbon Dioxide 28.3 Anion Gap 10.7 BUN 30 H Creatinine 1.4 H Est GFR (CKD-EPI 2020) 49.25 Glucose 108 H Calcium 8.1 L Magnesium Total Bilirubin 0.7 AST 121 H ALT 54 Alkaline Phosphatase 98 Creatine Kinase Troponin I Cancelled 337 H* 344 H* NT-Pro-B Natriuret Pep Total Protein 6.1 L Albumin 2.9 L Urine Color Urine Clarity Urine pH Ur Specific [place] Urine Protein Urine Ketones Urine Blood Urine Nitrite Urine Bilirubin Urine Urobilinogen Ur Leukocyte Esterase Urine RBC Urine WBC Ur Epithelial Cells Urine Crystals Urine Bacteria Urine Casts Urine Mucus Ur Culture Indicated? Urine Glucose Add-On Test Request Time Spent with Patient Time Spent with Patient: >50 minutes Time was spent: preparing to see the patient(eg.review tests), obtaining and/or reviewing separately otained hiistory, ordering medications,tests, procedures, referring, communicating with other health nurse behavioral health care, indepentently interpreting results, counseling the patient and care coordination
--- NOTE | 2025-04-04 11:21 | PHACLINREV_ITS ---
Pharmacy Admission Review Admission Clinical Review Admission Pharmacy Review: Elevated LFTs (Acute) Widened pulse pressure (Acute) Hematuria (Acute) Fever and chills (Acute) Elevated troponin level not due to acute coronary syndrome (Acute) Orthostasis (Acute) No Known Allergies Allergy (Verified 04/03/25 17:54) Resuscitation Status Full Code Height 5 ft 8 in Weight 79.8 kg Comments Comments/Follow Ups: AST, platelets and heart rate should be monitored Pharmacy Admission Review Renal Dosing Renal Dosing: BUN 30 mg/dL (7-18) H 04/04/25 05:49 Creatinine 1.4 mg/dL (0.70-1.30) H 04/04/25 05:49 Medications needing adjustments: Reviewed (Current Crcl is 43ml/min. No medication adjustments necessary at this time) Anticoagulation Anticoagulation: Hgb 12.4 g/dL (13.5-17.5) L 04/04/25 05:49 Hct 38.5 % (40.0-50.0) L 04/04/25 05:49 Plt Count 79 10^3/uL (130-400) L 04/04/25 05:49 Creatinine 1.4 mg/dL (0.70-1.30) H 04/04/25 05:49 DVT Prophylaxis: Reviewed (SCDs ordered. No chemical prophylaxis due to thrombocytopenia per H&P.) Opiate Usage Evaluate Pain Scale/Pains Meds: N/A Relevant Labs Relevant Labs: Sodium 139 mmol/L (136-145) 04/04/25 05:49 Potassium 3.7 mmol/L (3.5-5.1) 04/04/25 05:49 Chloride 100 mmol/L (98-107) 04/04/25 05:49 Magnesium 2.2 mg/dL (1.8-2.4) 04/03/25 18:43 Electrolytes, C-Reactive P, ESR: Reviewed (Sodium, potassium and corrected sarah cium all within normal limits ) DM Control DM Control: Reviewed (No DM recorded in patient's medical history) Cardiac Review Cardiac Review: Troponin I 344 ng/L (<or=76) H* 04/04/25 05:49 NT-Pro-B Natriuret Pep 2472 pg/mL (<300) H 04/03/25 18:43 Blood Pressure, Heart rate 97/57, 60 Blood Pressure, Heart rate 134/41, 60 Blood Pressure, Heart rate 132/52, 59 Blood Pressure, Heart rate 103/45, 62 Blood Pressure, Heart rate 103/45, 63 BP, HR, EF%: Reviewed (Ejection fraction was 50-55% with previous echocardiogram in February) QTc Review QTc: Reviewed (QTc as of 04/03/35 is 494) Home Meds Home Med List reviewed: Reviewed Relevent Home Meds Not ordered & why?: Patient's home rosuvastatin was held by mayr mauro due to impaired liver function. AST 121, Tbilli 0.7 Current Meds Current Medication Order Review: Reviewed Comments Comments/Follow Ups: AST, platelets and heart rate should be monitored
--- NOTE | 2025-04-04 12:26 | W.PC.ACHO ---
Registration Status: Primary Language: Preferred Language: ED Information & Data Chief Complaint Fever 04/03/25 18:24 Triage Note pt c/o fever intermittently 04/03/25 17:50 pt states has had balance issues pt also c/o nausea onset wednesday Medical / Surgical History (Last Reviewed 03/14/24 @ 03:12 by Neel Ochoa) Hyperlipidemia Most Recent Vital Signs Temperature 36.5 C 04/04/25 08:00 Temperature Source Temporal Artery Scan 04/04/25 08:00 Pulse 62 04/04/25 12:18 Pulse 73 04/04/25 12:20 Respiratory Rate 20 04/04/25 12:20 Respiratory Effort Normal 04/04/25 08:00 Respiratory Depth Normal 04/04/25 08:00 Respiratory Pattern Normal 04/04/25 08:00 Blood Pressure 113/49 L 04/04/25 12:18 Blood Pressure Mean 68 04/04/25 12:18 Blood Pressure Position Sitting 04/04/25 08:00 Pulse Oximetry 98 04/04/25 08:20 Oxygen Delivery Method Room Air 04/04/25 08:00 Oxygen Flow Rate 0 04/04/25 08:00 Pain Level 0 04/04/25 08:00 Comment No O2 when awake 04/04/25 04:00 Allergies No Known Allergies Allergy (Verified 04/03/25 17:54) Active Medications Generic Name Dose Route Start Last Admin Trade Name Freq PRN Reason Stop Dose Admin Acetaminophen 0 mg 04/03/25 22:55 04/04/25 04:13 Acetaminophen 325 Mg Tab PO 650 mg Q4H PRN PRN Administration Aspirin 81 mg 04/04/25 08:30 04/04/25 10:03 Aspirin E.C. 81 Mg Tabec PO 81 mg DAILY AKI Administration Doxycycline Hyclate 100 mg 04/04/25 08:30 04/04/25 10:03 Doxycycline Hyclate 100 Mg Cap PO 100 mg BID AKI Administration Sodium Chloride 1,000 mls @ 100 mls/hr 04/03/25 23:00 04/04/25 10:03 Saline 1000ml Bag IV 100 mls/hr INFUSION AKI Administration Sodium Chloride 1,000 mls @ 150 mls/hr 04/03/25 23:45 04/04/25 08:00 Saline 1000ml Bag IV Infused INFUSION AKI Infusion Sodium Chloride 0 ml 04/03/25 20:00 04/04/25 10:04 Normal Saline Flush 10 Ml Syr IVP 10 ml BID AKI Administration IV IV Catheter Type [Left Saline Lock Antecubital] IV Catheter Gauge [Left 20 Antecubital] Diet Orders Category Date Time Status Regular/Normal [DIET] Nutrition 04/04/25 Breakfast Active Diagnostics 04/04/25 04/04/25 04/04/25 Range/Units 05:49 02:00 00:14 WBC 4.99 (4.4-10.8) 10^3/uL RBC 4.31 L (4.36-5.78) 10^6/uL Hgb 12.4 L (13.5-17.5) g/dL Hct 38.5 L (40.0-50.0) % MCV 89 (80-95) fL MCH 28.8 (27.0-33.0) pg MCHC 32.2 (32.0-36.0) % RDW 13.9 (11.8-14.1) % Plt Count 79 L (130-400) 10^3/uL MPV 11.0 (8.0-11.0) fL Immature Gran % 0.0 % Neutrophils % 89.0 % Lymphocytes % 5.0 % Monocytes % 6.0 % Eosinophils % 0.0 % Basophils % 0.0 % Nucleated RBC % 0.0 (0.0-0.3) % Absolute Neutrophils 4.44 (1.2-6.7) 10^3/uL Absolute Lymphocytes 0.25 L (1.2-3.4) 10^3/uL Absolute Monocytes 0.30 (0.1-0.8) 10^3/uL Absolute Eosinophils 0.00 (0.0-0.7) 10^3/uL Absolute Basophils 0.00 (0.0-0.2) 10^3/uL RBC Morphology VBG Lactate (<or=2.0) mmol/L Sodium 139 (136-145) mmol/L Potassium 3.7 (3.5-5.1) mmol/L Chloride 100 (98-107) mmol/L Carbon Dioxide 28.3 (21.0-32.0) mmol/L Anion Gap 10.7 (3-11) mmol/L BUN 30 H (7-18) mg/dL Creatinine 1.4 H (0.70-1.30) mg/dL Est GFR (CKD-EPI 2020) 49.25 (mL/min/1.73m2) Glucose 108 H (74-106) mg/dL Calcium 8.1 L (8.5-10.1) mg/dL Magnesium (1.8-2.4) mg/dL Total Bilirubin 0.7 (0.2-1.0) mg/dL AST 121 H (15-37) U/L ALT 54 (16-63) U/L Alkaline Phosphatase 98 (46-116) U/L Creatine Kinase (39-308) U/L Troponin I 344 H* 337 H* Cancelled (<or=76) ng/L NT-Pro-B Natriuret Pep (<300) pg/mL Total Protein 6.1 L (6.4-8.2) g/dL Albumin 2.9 L (3.4-5.0) g/dL Free PSA Pending Total PSA Pending PSA Free/Total Ratio Pending Urine Color (Yellow) Urine Clarity (Clear) Urine pH (5-8) Ur Specific [place] (1.005-1.025) Urine Protein (Neg-Trace) mg/dL Urine Ketones (Negative) mg/dL Urine Blood (Negative) Urine Nitrite (Negative) Urine Bilirubin (Negative) Urine Urobilinogen (Up to 0.2) mg/dL Ur Leukocyte Esterase (Negative) Urine RBC (0-2) HPF Urine WBC (0-5) HPF Ur Epithelial Cells (Negative) HPF Urine Crystals (Negative) HPF Urine Bacteria (Negative) HPF Urine Casts (Negative) LPF Urine Mucus (Negative) Ur Culture Indicated? Urine Glucose (Negative) mg/dL B. divergens/MO-1 PCR Babesia duncani (PCR) Babesia microti DNA PCR Lyme Disease Antibody E.chaffeensis DNA (PCR) E.ewingii/canis DNA PCR E.muris eauclairensis (PCR) A. phagocytophilum (PCR) Blood B. miyamotoi (PCR) Add-On Test Request 04/03/25 04/03/25 04/03/25 Range/Units 23:14 22:28 20:26 WBC (4.4-10.8) 10^3/uL RBC (4.36-5.78) 10^6/uL Hgb (13.5-17.5) g/dL Hct (40.0-50.0) % MCV (80-95) fL MCH (27.0-33.0) pg MCHC (32.0-36.0) % RDW (11.8-14.1) % Plt Count (130-400) 10^3/uL MPV (8.0-11.0) fL Immature Gran % % Neutrophils % % Lymphocytes % % Monocytes % % Eosinophils % % Basophils % % Nucleated RBC % (0.0-0.3) % Absolute Neutrophils (1.2-6.7) 10^3/uL Absolute Lymphocytes (1.2-3.4) 10^3/uL Absolute Monocytes (0.1-0.8) 10^3/uL Absolute Eosinophils (0.0-0.7) 10^3/uL Absolute Basophils (0.0-0.2) 10^3/uL RBC Morphology VBG Lactate (<or=2.0) mmol/L Sodium (136-145) mmol/L Potassium (3.5-5.1) mmol/L Chloride (98-107) mmol/L Carbon Dioxide (21.0-32.0) mmol/L Anion Gap (3-11) mmol/L BUN (7-18) mg/dL Creatinine (0.70-1.30) mg/dL Est GFR (CKD-EPI 2020) (mL/min/1.73m2) Glucose (74-106) mg/dL Calcium (8.5-10.1) mg/dL Magnesium (1.8-2.4) mg/dL Total Bilirubin (0.2-1.0) mg/dL AST (15-37) U/L ALT (16-63) U/L Alkaline Phosphatase (46-116) U/L Creatine Kinase 2904 H (39-308) U/L Troponin I Cancelled 303 H* (<or=76) ng/L NT-Pro-B Natriuret Pep (<300) pg/mL Total Protein (6.4-8.2) g/dL Albumin (3.4-5.0) g/dL Free PSA Total PSA PSA Free/Total Ratio Urine Color (Yellow) Urine Clarity (Clear) Urine pH (5-8) Ur Specific [place] (1.005-1.025) Urine Protein (Neg-Trace) mg/dL Urine Ketones (Negative) mg/dL Urine Blood (Negative) Urine Nitrite (Negative) Urine Bilirubin (Negative) Urine Urobilinogen (Up to 0.2) mg/dL Ur Leukocyte Esterase (Negative) Urine RBC (0-2) HPF Urine WBC (0-5) HPF Ur Epithelial Cells (Negative) HPF Urine Crystals (Negative) HPF Urine Bacteria (Negative) HPF Urine Casts (Negative) LPF Urine Mucus (Negative) Ur Culture Indicated? Urine Glucose (Negative) mg/dL B. divergens/MO-1 PCR Babesia duncani (PCR) Babesia microti DNA PCR Lyme Disease Antibody E.chaffeensis DNA (PCR) E.ewingii/canis DNA PCR E.muris eauclairensis (PCR) A. phagocytophilum (PCR) Blood B. miyamotoi (PCR) Add-On Test Request DONE 04/03/25 04/03/25 04/03/25 Range/Units 19:53 19:23 18:43 WBC 5.31 (4.4-10.8) 10^3/uL RBC 4.65 (4.36-5.78) 10^6/uL Hgb 13.6 (13.5-17.5) g/dL Hct 41.4 (40.0-50.0) % MCV 89 (80-95) fL MCH 29.2 (27.0-33.0) pg MCHC 32.9 (32.0-36.0) % RDW 13.9 (11.8-14.1) % Plt Count 114 L (130-400) 10^3/uL MPV 10.5 (8.0-11.0) fL Immature Gran % 0.4 % Neutrophils % 91.2 % Lymphocytes % 5.6 % Monocytes % 2.4 % Eosinophils % 0.0 % Basophils % 0.4 % Nucleated RBC % 0.0 (0.0-0.3) % Absolute Neutrophils 4.84 (1.2-6.7) 10^3/uL Absolute Lymphocytes 0.30 L (1.2-3.4) 10^3/uL Absolute Monocytes 0.13 (0.1-0.8) 10^3/uL Absolute Eosinophils 0.00 (0.0-0.7) 10^3/uL Absolute Basophils 0.02 (0.0-0.2) 10^3/uL RBC Morphology Normal VBG Lactate 1.1 (<or=2.0) mmol/L Sodium 138 (136-145) mmol/L Potassium 4.3 (3.5-5.1) mmol/L Chloride 101 (98-107) mmol/L Carbon Dioxide 29.3 (21.0-32.0) mmol/L Anion Gap 7.7 (3-11) mmol/L BUN 32 H (7-18) mg/dL Creatinine 1.4 H (0.70-1.30) mg/dL Est GFR (CKD-EPI 2020) 49.25 (mL/min/1.73m2) Glucose 106 (74-106) mg/dL Calcium 8.5 (8.5-10.1) mg/dL Magnesium 2.2 (1.8-2.4) mg/dL Total Bilirubin 1.2 H (0.2-1.0) mg/dL AST 118 H (15-37) U/L ALT 61 (16-63) U/L Alkaline Phosphatase 115 (46-116) U/L Creatine Kinase (39-308) U/L Troponin I 290 H* 293 H* (<or=76) ng/L NT-Pro-B Natriuret Pep 2472 H (<300) pg/mL Total Protein 7.0 (6.4-8.2) g/dL Albumin 3.5 (3.4-5.0) g/dL Free PSA Total PSA PSA Free/Total Ratio Urine Color Dark Yellow (Yellow) Urine Clarity Clear (Clear) Urine pH 5.5 (5-8) Ur Specific [place] 1.025 (1.005-1.025) Urine Protein >=300 H (Neg-Trace) mg/dL Urine Ketones 15 H (Negative) mg/dL Urine Blood Large H (Negative) Urine Nitrite Negative (Negative) Urine Bilirubin Small H (Negative) Urine Urobilinogen 1.0 H (Up to 0.2) mg/dL Ur Leukocyte Esterase Negative (Negative) Urine RBC 3-5 H (0-2) HPF Urine WBC 0-2 (0-5) HPF Ur Epithelial Cells Few (Negative) HPF Urine Crystals Many Amorphous (Negative) HPF Urine Bacteria Negative (Negative) HPF Urine Casts 0-2 Coarse Granular (Negative) LPF Urine Mucus Heavy (Negative) Ur Culture Indicated? No Urine Glucose Negative (Negative) mg/dL B. divergens/MO-1 PCR Pending Babesia duncani (PCR) Pending Babesia microti DNA PCR Pending Lyme Disease Antibody Pending E.chaffeensis DNA (PCR) Pending E.ewingii/canis DNA PCR Pending E.muris eauclairensis (PCR) Pending A. phagocytophilum (PCR) Pending Blood B. miyamotoi (PCR) Pending Add-On Test Request 04/03/25 19:20 Blood Culture - Pending Blood 04/03/25 19:00 Blood Culture - Pending Blood Intake and Output - 24 Hour Total 04/03/25 17:47 thru 04/04/25 10:53 Intake Total 2375 Output Total 1125 Balance 1250 Weight 79.8 kg Intake: IV 1660 Oral 715 Output: Urine 1125 Other: Urine Color Yellow Urine Appearance Clear # Voids 1 Falls Risk Assessment History of Falls No History 04/04/25 08:00 Contributing Factors No Factors 04/04/25 08:00 Ambulatory Aids Independent 04/04/25 08:00 Tubes/Lines None 04/04/25 08:00 Gait Evaluation No gait disturbance 04/04/25 08:00 Cognition No cognitive impairment 04/04/25 08:00 Fall Total Score 0 04/04/25 08:00 Level of Risk Standard/Low Risk 04/04/25 08:00 Problems (Last Reviewed 03/14/24 @ 03:12 by Neel Ochoa) Elevated LFTs (Acute) Widened pulse pressure (Acute) Hematuria (Acute) Thrombocytopenia (Chronic) Fever and chills (Acute) Heart block (Chronic) CAD (coronary artery disease), [place] coronary artery (Chronic) Elevated troponin level not due to acute coronary syndrome (Acute) Orthostasis (Acute) v v v v v v v v v Sending and/or Receiving Nurses: Please use comment section below to note any information pertinent to the patient hand-off not included above. Information / Comments: Report received from: 54Danitza Mckeon RN
[2025-04-05] VITALS (17 sets, daily range): BP systolic 104–126; BP diastolic 41–68; PULSE 59–82; RESP 14–22; TEMP 36.4–36.9
--- NOTE | 2025-04-05 | DI.US_ITS ---
APPROVED REPORT EXAM: Comprehensive 2D, Doppler, and color-flow Echocardiogram Patient Location: In-Patient Room/Bed: 221 Warranty Administrator: Devon Lowery RDCS (AE) Indications: Elevated troponin Other Information Study Quality: Fair Conclusion Normal left ventricular wall thickness and chamber size. Ejection fraction is 55%. Wall motion is normal Normal right ventricular size and function Both atria are mildly dilated Device lead noted in the right heart Aortic valve is mildly sclerotic and trileaflet without stenosis or regurgitation Mild mitral and tricuspid regurgitation Wall motion Left Ventricle The left ventricle is normal size. The left ventricular systolic function is normal. The left ventricular ejection fraction is within the normal range. There is normal left ventricular wall thickness. There is normal LV segmental wall motion. There is no ventricular septal defect visualized. LVEF is 55%. Right Ventricle The right ventricle is normal size. The right ventricular systolic function is normal. Pacemaker lead is present in the right ventricle. Atria Left atrium is mildly dilated. Right atrium is mildly dilated. The interatrial septum is intact with no evidence for an atrial septal defect. Aortic Valve The aortic valve is mildly sclerotic. There is no aortic valvular stenosis. No aortic regurgitation is present. Mitral Valve Mild mitral annular calcification. No evidence of mitral valve stenosis. Mild mitral regurgitation. Tricuspid Valve The tricuspid valve is normal in structure. There is no tricuspid valve stenosis. Mild tricuspid regurgitation. Pulmonic Valve The pulmonary valve is normal in structure. There is no pulmonic valvular stenosis. Trace pulmonic regurgitation. Great Vessels The aortic root is normal in size. The ascending aorta is normal in size. Aortic arch is not well visualized. IVC is normal in size and collapses >50% with inspiration. Pericardium There is no pericardial effusion. 2D Dimensions IVSD d PLAX 1.15 cm M: 0.6-1.2 Ao Root d 3.12 cm M: 3.1 - 3.7 LVPW d PLAX 0.97 cm M: 0.6 - 1.2 Ao Asc Diam d 3.36 cm M: 2.6 - 3.4 LVID d PLAX 5.24 cm M: 4.2 - 5.8 LVDs 3.95 cm M: 2.5 - 4.0 LV EF Teichholz 48.3 % FS 24.51 % LV EDV (Teich) 131.7 mL LV ESV (Teich) 68.1 mL Stroke Vol Index (Teich) 33.29 M-Mode TAPSE 2.45 cm (M/F) >1.7 Auto EF LV EDV A4C 116.9 mL LV EDV A2C 118.0 mL LV EDV BP 117.4 mL LV ESV A4C 61.1 mL LV ESV A2C 59.7 mL LV ESV BP 60.2 mL LVEF(%) A4C 47.8 % LVEF(%) A2C 49.4 % LVEF(%) BP 48.7 % LV SV A4C 55.8 ml LV SV A2C 58.3 ml LV SV BP 57.2 ml LV CO A4C 3.3 L/min LV CO A2C 3.5 L/min LV CO BP 3.4 L/min HR A4C 59.88 BPM HR A2C 59.90 BPM LV EDV Index (BP) LA Volume LA Length A4C 4.6 cm LA Length A2C 5.2 cm LA Area A4C s 13.06 cm2 LA Area A2C s 16.07 cm2 LA Vol A4C A-L 31.67 mL LA Vol A2C A-L 42.38 mL LA Vol Biplane A-L 39.0 mL LA Vol/BSA A4C A-L LA Vol/BSA A2C A-L LA Vol/BSA BP A-L 20.4 mL/m2 LA Vol A4C MOD 29.0 mL LA Vol A2C MOD 38.8 mL LA Vol BP MOD 35.3 mL RA Volume RA Area A4C 11.1 cm2 RA ESV A4C (A-L) 23.4mL RA Vol/BSA A4C A-L RA Length A4C 4.4 cm RA ESV A4C (MOD) 22.8mL LV Diastology MV E' medial 0.077 (>0.07 m/s) MV E Vmax 1.06 (0.4-1.3 m/s) MV E/E' MED 13.76 (<14) MV A Vmax 0.75 (0.4-1.3 m/s) MV E' lateral 0.077 (>0.1 m/s) E/A Ratio 1.4 MV E/E' LAT 13.76 (<14) MV E' Average 0.077 m/s MV E/E'(average) 13.76 Aortic Valve AoV Vmax 1.87 m/s LVOT Vmax 0.91 m/s AoV Peak Grad 14.0 mmHg LVOT Peak Grad 3.3 mmHg AoV Area (Vmax) 1.53 cm2 LVOT VTI 0.197 m AoV VTI 0.444 m LVOT Mean Grad 1.8 mmHg AoV Mean Sheldon. 1.36 m/s LVOT SV 62.16 mL AoV Mean Grad 8.4 mmHg LVOT Diam s 2.00 cm AoV Area (VTI) 1.40 cm2 AV Regurg Peak Gr. 13.97 mmHg Velocity Ratio 0.49 Mitral Valve MV DT 143 (160-240 msec) Pulmonary Valve PV Vmax 0.90 (0.5-1.5 m/s) RVOT Vmax 0.49 m/s PV Peak Grad 3.2 mmHg RVOT Peak Gr. 0.9 mmHg PV Mean Sheldon 0.61 m/s RVOT VTI 0.120 m PV Mean Grad 1.7 mmHg RVOT Mean Gr. 0.6 mmHg Tricuspid Valve RA Pressure 3.00 mmHg TR Vmax 3.38 m/s TR Peak Grad 45.5 mmHg RVSP (TR) 48.6 mmHg
[2025-04-05 05:57] LABS: HCT 37.1 % (40.0-50.0); HGB 12.2 g/dL (13.5-17.5); MCH 29.3 pg (27.0-33.0); MCHC 32.9 % (32.0-36.0); MCV 89 fL (80-95); MPV 11.4 fL (8.0-11.0); Platelet Count 77 10^3/uL (130-400); RBC 4.16 10^6/uL (4.36-5.78); RDW 14.2 % (11.8-14.1); RDW-SD 46.5 fL; WBC 4.38 10^3/uL (4.4-10.8)
[2025-04-05 05:59] LABS: ALT 52 U/L (16-63); AST 113 U/L (15-37); Albumin 2.9 g/dL (3.4-5.0); Alkaline Phosphatase 103 U/L (46-116); Anion Gap 6.8 mmol/L (3-11); BUN 24 mg/dL (7-18); Bilirubin, Total 0.5 mg/dL (0.2-1.0); CO2 28.2 mmol/L (21.0-32.0); CREATININE 0.9 mg/dL (0.70-1.30); Calcium 8.6 mg/dL (8.5-10.1); Chloride 106 mmol/L (98-107); Glucose 94 mg/dL (74-106); Potassium 3.8 mmol/L (3.5-5.1); Sodium 141 mmol/L (136-145)
[2025-04-05] MEDS: Doxycycline Hyclate 100 MG CAP PO (08:03)
[2025-04-05] MEDS: Aspirin E.C. 81 MG TABEC PO (08:03)
[2025-04-05] MEDS: Normal Saline Flush 10 ML SYR IVP (08:04)
[2025-04-05 10:50] LABS: Lyme Ab w Rflx to Lyme Confirm Negative (Negative)
--- NOTE | 2025-04-05 10:55 | DSE_ITS ---
Date of service: 04/05/25 Time of Service: 10:55 DS: Diagnosis Discharge Diagnosis (1) Fever and chills: Status: Acute (2) Orthostasis: Status: Acute (3) Elevated troponin level not due to acute coronary syndrome: Status: Acute (4) CAD (coronary artery disease), [place] coronary artery: Status: Chronic (5) Heart block: Status: Chronic (6) Thrombocytopenia: Status: Chronic (7) Elevated LFTs: Status: Acute Discharge Plan Disposition Patient Disposition: Home Condition: Good Discharge Details Reason For Visit: Fatigue Admit Date/Time: 04/03/25 22:55 Admit Provider: Jeff Romero Attending Provider: Jeff Romero [facility] Hospital Course: Patient initially presented with signs and symptoms that are presumed to be secondary to Lyme disease. Patient had symptoms of muscle aches fatigue, and fevers as well as objective signs of such as mildly elevated troponin, elevated LFTs and thrombocytopenia all of which can be caused by Lyme disease. Additionally, he was treated with doxycycline and had significant improvement of his symptoms, given that patient had improved it was determined that he was stable for discharge home and will continue an additional 12 days of p.o. doxycycline. Home Meds and New Rx's Prescriptions: New doxycycline hyclate 100 mg Capsule 100 mg PO BID 12 Days Qty: 24 0RF Continued ipratropium bromide 42 mcg (0.06 %) spray,non-aerosol 2 spray intranasal QID Rx Instructions: administer into each nostril carvedilol [Coreg] 3.125 mg tablet 3.125 mg PO BID Rx Instructions: must administer with a meal/food ketoconazole 2 % cream 1 applic topical DAILY PRN Rx Instructions: rash/dry skin on forehead lisinopril 5 mg tablet 5 mg PO DAILY rosuvastatin [Crestor] 20 mg tablet 20 mg PO DAILY aspirin 81 mg capsule 81 mg PO DAILY nitroglycerin 0.4 mg tablet, sublingual 0.4 mg sublingual Q5-15M PRN Rx Instructions: do not exceed 3 doses per episode Discharge Instructions Activity:: Activity as Tolerated Equipment/Supplies:: No Equipment Needed Diet:: As Tolerated Discharge Orders Discharge Orders: Discharge Order (Routine); Ordered 04/05/25 Ordered By: Alvarez Fuentes Discharge Data Discharge Date/Time-TO BE ENTERED AT DEPARTURE: 04/05/25 13:00 Discharge Comment: Home DS: Summary Time Spent with Patient providing and/or coordinating discharge services: Greater than 30 minutes Status at Discharge Functional status at discharge: independent ambulation Overall status at discharge: patient is back to baseline Mental Status: mental status grossly normal Speech and Movement: speech and movement normal Mood: congruent mood Affect: normal affect Quality:SDOH Health Related Social Needs: Health related social needs education Health related social needs details na Health related social needs details: na Exam Narrative Exam Narrative: Well-appearing older gentleman sitting up at the edge of the bed no acute distress, ANO x 4, heart regular rhythm, lungs good auscultation bilaterally, abdomen soft, nontender, nondistended Psych Mental Status: mental status grossly normal Speech and Movement: speech and movement normal Mood: congruent mood Affect: normal affect DS: Data Vitals/I&O Vitals and I&O: Vital Signs Temperature 98.4 F 04/05/25 07:22 Temperature Source Tympanic 04/05/25 07:22 Pulse 59 L 04/05/25 06:56 Pulse 70 04/05/25 07:00 Respiratory Rate 17 04/05/25 07:00 Respiratory Effort Normal 04/04/25 08:00 Respiratory Depth Normal 04/04/25 08:00 Respiratory Pattern Normal 04/04/25 08:00 Blood Pressure 104/41 L 04/05/25 06:56 Blood Pressure Mean 61 04/05/25 06:56 Blood Pressure Position Sitting 04/04/25 08:00 Pulse Oximetry 98 04/04/25 08:20 Oxygen Delivery Method Room Air 04/05/25 07:22 Oxygen Flow Rate 0 04/05/25 07:22 Pain Level 0 04/04/25 12:00 Comment No O2 when awake 04/04/25 04:00 Intake & Output 04/04/25 04/05/25 04/05/25 17:59 05:59 17:59 Intake Total 1702 / 1702 1826.667 / 3528.667 490 / 490 Output Total 600 / 600 730 / 1330 Balance 1102 / 1102 1096.667 / 2198.667 490 / 490 Weight 175 lb 14.862 oz 180 lb 1.883 oz Intake: IV 1000 / 1000 1186.667 / 2186.667 50 / 50 Oral 702 / 702 640 / 1342 440 / 440 Output: Urine 600 / 600 730 / 1330 Other: Urine Color Yellow Yellow Yellow Urine Appearance Clear Clear Clear Urine Odor Normal Normal Comment Patient voided an unmeasured small amount of urine into bedside commode. Patient does tend to dribble urine post voiding. Unmeasured small amount voided in bedside commode. # Voids 1 Data Completed and Pending Labs on day of discharge: Labs from last 24 hours 04/05/25 05:25 WBC 4.38 L RBC 4.16 L Hgb 12.2 L Hct 37.1 L MCV 89 MCH 29.3 MCHC 32.9 RDW 14.2 H Plt Count 77 L MPV 11.4 H Sodium 141 Potassium 3.8 Chloride 106 Carbon Dioxide 28.2 Anion Gap 6.8 BUN 24 H Creatinine 0.9 Est GFR (CKD-EPI 2020) 83.70 Glucose 94 Calcium 8.6 Total Bilirubin 0.5 AST 113 H ALT 52 Alkaline Phosphatase 103 Total Protein 6.0 L Albumin 2.9 L Preliminary micro results at discharge 04/03/25 19:20 Blood Blood Culture - Preliminary NO GROWTH 24 HOURS 04/03/25 19:00 Blood Blood Culture - Preliminary NO GROWTH 24 HOURS PFSH All Active Problems (Updated 04/04/25 @ 10:55 by Alvarez Fuentes MD) Elevated LFTs (Acute) Widened pulse pressure (Acute) Hematuria (Acute) Elevated AST (SGOT) (Acute) Thrombocytopenia (Chronic) Fever and chills (Acute) Carotid stenosis, bilateral (Chronic) PATRICIA (acute kidney injury) (Acute) Orthostatic hypotension (Acute) Non-ST elevation RI (NSTEMI) (Acute) COPD (chronic obstructive pulmonary disease) (Chronic) Heart block (Chronic) CHF (congestive heart failure) (Chronic) CAD (coronary artery disease), [place] coronary artery (Chronic) Elevated troponin level not due to acute coronary syndrome (Acute) Orthostasis (Acute) Medical History (Updated 04/04/25 @ 10:55 by Alvarez Fuentes MD) Hyperlipidemia Social History Smoking/Tobacco Use Status: Former Tobacco Use Quit Date: 02/26/81 Smoking risk assessment performed?: Yes Alcohol Intake: former Drug use: Never Substance use type: does not use Housing: house Do you feel safe at home: Yes Do you feel safe in your relationship?: Yes Time Spent with Patient Time Spent with Patient: <45 minutes Time was spent: preparing to see the patient(eg.review tests), obtaining and/or reviewing separately otained hiistory, ordering medications,tests, procedures, referring, communicating with other health transitional care manager, indepentently interpreting results, counseling the patient and care coordination
--- NOTE | 2025-04-05 11:31 | CHAPLAIN ---
Farhad was up in the chair when I visited. He was pleasant and easily engaged in conversation. He was raised in the [employer], attended a [employer] and has also been very involved in [facility] [place], [employer] and studied and follow Faith practices. He was told early in his education that doubting and seeking are ways to grow romario and he's continued to do that. His romario and spiritual practices very much influence his the way the lives his life. Farhad lives in [place] with his . They lived in [place] as well. They have four daughters and a son. Farhad believes he'll be discharged later today.
--- NOTE | 2025-04-05 15:43 | PDOC.CMDIS ---
Date of service: 04/05/25 Time of Service: 15:48 LACE Index Scoring Tool Questions: Length of Stay (in days): 2 Was the patient admitted via the E.D.?: Yes Comorbidities: Previous M.I., Congestive Heart Failure and Chronic Pulmonary Disease E.D. Visits: 1 Answers: Total Score: 11 Risk of Readmission: High Risk Care Management Discharge Plan Reason for Hospitalization: fatigue Discharge Plan: Farhad returned home today with no new services. He was transported via private vehicle with family. He will follow up with his PCP and discharge plan of care. Patient/Family Education Needs: Review discharge instructions and limitations, discussion of self care needs including ask me three. SDOH Health Related Social Needs: Health related social needs education Health related social needs details na Health related social needs details: pedro
[2025-04-07 00:10] LABS: B. miyamotoi PCR Negative (Negative); Babesia divergens/MO-1 Negative (Negative); Babesia duncani Negative (Negative); Babesia microti Negative (Negative); Ehrlichia chaffeensis Negative (Negative); Ehrlichia ewingii/canis Negative (Negative); Ehrlichia muris eauclairensis Negative (Negative)
[2025-04-07 06:00] LABS: Anaplasma phagocytophilum Positive (Negative)
== END 2025-04-05 13:00 | disposition home or self-care (01) ==
LOC: ER 23:38 → EDHOLD 23:40 → ICU 04-04 07:59
PROVIDERS: Admitting Provider Hospitalist; Emergency Provider Emergency Medicine; PCP Family Medicine; Responsible Provider Family Medicine; Visit Provider Hospitalist
DX: A69.20 Lyme disease, unspecified (principal); I95.1 Orthostatic hypotension; I25.10 Atherosclerotic heart disease of native coronary artery without angina pectoris; D69.6 Thrombocytopenia, unspecified; R31.9 Hematuria, unspecified; E78.2 Mixed hyperlipidemia; Z95.0 Presence of cardiac pacemaker; I25.2 Old myocardial infarction; R74.8 Abnormal levels of other serum enzymes; Z79.899 Other long term (current) drug therapy; I50.9 Heart failure, unspecified; J44.9 Chronic obstructive pulmonary disease, unspecified; R42 Dizziness and giddiness; R74.01 Elevation of levels of liver transaminase levels; M79.10 Myalgia, unspecified site; I65.23 Occlusion and stenosis of bilateral carotid arteries; I45.9 Conduction disorder, unspecified
CPT/HCPCS: 00123; 36415; 71250; 80053; 82550; 85027; 87040; 87426; 87798; 93005; 93306; 96361; 96365; 96366; 96367; 99285; 71046; 81003; 81015; 83605; 83735; 83880; 84154; 84484; 85025; 86618; 93010; 99223; 99233; 99239; G0378; J0696